=== PATIENT | female | born 1945 | race Caucasian/White ===

== ENCOUNTER 2017-04-18 13:53 | Outpatient (CLI) | payer BC | END 2017-04-18 13:54 | disposition home or self-care (01) | LOC: BICBD 13:53 | PROVIDERS: ATTEND Internal Medicine | DX: Z12.31 Encounter for screening mammogram for malignant neoplasm of breast (principal); Z13.820 Encounter for screening for osteoporosis; M85.852 Other specified disorders of bone density and structure, left thigh | CPT/HCPCS: 77063; 77067; 77080 ==

== ENCOUNTER 2018-04-19 11:13 | Outpatient (CLI) | payer MEDICARE, BC | END 2018-04-19 11:14 | disposition home or self-care (01) | LOC: BICMAMMO 11:13 | PROVIDERS: ATTEND Internal Medicine | DX: Z12.31 Encounter for screening mammogram for malignant neoplasm of breast (principal) | CPT/HCPCS: 77063; 77067 ==

== ENCOUNTER 2019-04-22 09:00 | Outpatient (CLI) | payer MEDICARE, BC ==
--- NOTE | 2019-04-23 10:12 | MMO ---
Bilateral MAMMO Bilat Screen [facility]. CLINICAL HISTORY: Patient is 73 years old and is seen for screening. The patient has no family history of breast cancer. The patient has no personal history of cancer. VIEWS: The views performed were: bilateral craniocaudal with tomosynthesis and bilateral mediolateral oblique with tomosynthesis. FILMS COMPARED: The present examination has been compared to prior imaging studies performed at [facility] on 04/15/2015, 04/17/2016, 04/18/2017 and 04/19/2018. This study has been interpreted with the assistance of computer-aided detection. MAMMOGRAM FINDINGS: There are scattered fibroglandular densities. There are no suspicious masses, suspicious calcifications, or new areas of architectural distortion. IMPRESSION: THERE IS NO MAMMOGRAPHIC EVIDENCE OF MALIGNANCY. A ROUTINE FOLLOW-UP MAMMOGRAM IN 1 YEAR IS RECOMMENDED. THE RESULTS OF THIS EXAM WERE SENT TO THE PATIENT. ACR BI-RADS Category 1 - Negative MAMMOGRAPHY NOTE: 1. A negative mammogram report should not delay a biopsy if a dominant of clinically suspicious mass is present. 2. Approximately 10% to 15% of breast cancers are not detected by mammography. 3. Adenosis and dense breasts may obscure an underlying neoplasm. Reported by: WILLIAM LEE MD Electonically Signed: [id number]
== END 2019-04-22 09:01 | disposition home or self-care (01) ==
LOC: BICMAMMO 09:00
PROVIDERS: ATTEND Internal Medicine
DX: Z12.31 Encounter for screening mammogram for malignant neoplasm of breast (principal)
CPT/HCPCS: 77063; 77067

== ENCOUNTER 2019-04-27 12:38 | Inpatient (IN) | payer MEDICARE, BC ==
[~2019-04-27 12:38] MED LIST: Dexamethasone 20 MG/5 ML VIAL ONE; Lidocaine 1% PF 5 ML VIAL ONE; Ondansetron PF 4 MG/2 ML Vial ONE; PROPOFOL 200 MG/20 ML VIAL ONE
[2019-04-27] MEDS ORDERED: Fentanyl 100 MCG/2 ML VIAL ONE ×3 (13:08→16:32)
[2019-04-27] MEDS ORDERED: Adacel (T-DAP) 0.5 ML SYRINGE ONE ×3 (13:31→13:51)
--- NOTE | 2019-04-27 13:49 | RAD ---
LEFT ANKLE TWO VIEWS: HISTORY: Fell in bathroom. FINDINGS: There is a fracture-dislocation with a transversely oriented distal fibular fracture. There is a medi al malleolar fracture and what is probably a posterior malleolar fracture. The tibia is displaced med ially. IMPRESSION: Fracture-dislocation of the tibia, which is at least a medial bimalleolar fracture, and also probably an associated posterior malleolar fracture. POS: [facility]
--- NOTE | 2019-04-27 13:51 | RAD ---
LEFT ANKLE TWO VIEWS: HISTORY: Post reduction. FINDINGS: There has been some reduction in the dislocation of the tibia. It has been partially reduced. The tib ia now is more anteriorly displaced but less medially displaced. IMPRESSION: Partial reduction of tibial dislocation. POS: [facility]
[2019-04-27 14:23] LABS: #Lymphocytes 0.9 thou/uL (1.20-3.40); #Monocytes 0.6 thou/uL (0.11-0.59); #Neutrophils 8.4 thou/uL (1.40-6.50); %Basophils 0.3 % (0.0-1.0); %Eosinophils 0.3 % (0.0-10.0); %Lymphocytes 8.7 % (21.0-51.0); %Monocytes 6.5 % (0.0-10.0); %Neutrophils 84.2 % (42.0-75.0); Hemoglobin 13.5 g/dL (12.0-16.0); Mean Corpuscular HGB CONC 34.4 g/dL (32.0-36.0); Mean Corpuscular Hemoglobin 33.1 pg (27.0-31.0); Mean Corpuscular Volume 96.1 fL (78.0-98.0); Mean Platelet Volume 7.6 fL (7.4-10.4); Platelet Count 258 thou/uL (130-400); RBC Distribution Width 11.6 % (11.5-14.5); Red Blood Cell (RBC) Count 4.09 mill/uL (4.20-5.40)
--- NOTE | 2019-04-27 14:44 | RAD ---
CHEST ONE VIEW: HISTORY: Trauma. FINDINGS: Heart size is at the upper limits of normal. Mediastinal structures appear unremarkable. Lungs are cl ear of infiltrates. Bones appear demineralized. IMPRESSION: Borderline heart size. POS: [facility]
[2019-04-27] MEDS ORDERED: Ondansetron PF 4 MG/2 ML Vial IVP PRN (14:45)
[2019-04-27] MEDS ORDERED: Dextrose 50% Abboject 50 ML SYRINGE SLOW IVP PRN (14:45)
[2019-04-27] MEDS ORDERED: Dextrose 5% in Water 1,000 ML IV PRN (14:45)
[2019-04-27] MEDS ORDERED: hydrALAZINE 20 MG/ML VIAL SLOW IVP PRN (14:45)
[2019-04-27] MEDS ORDERED: Morphine 2 MG/ML SYRINGE SLOW IVP PRN (14:45)
[2019-04-27 14:46] LABS: ALT (SGPT) 23 U/L (8-55); AST (SGOT) 27 U/L (5-34); Albumin 4.3 g/dL (3.4-4.8); Alcohol 129 mg/dL (Less than 10); Alkaline Phosphatase 71 U/L (40-110); Anion Gap 17 mmol/L (10-20); BUN (Urea Nitrogen) 18 mg/dL (9.8-20.1); Bilirubin, Total 0.2 mg/dL (0.2-1.2); CK (CPK) 262 U/L (29-168); Calc. Creatinine Clearance 0 mL/min (70-130); Calcium 9.3 mg/dL (7.8-10.44); Carbon Dioxide 24 mmol/L (23-31); Chloride 103 mmol/L (98-107); Estimated GFR-MDRD 60; Glucose 106 mg/dL (83-110); Potassium 4.5 mmol/L (3.5-5.1); Protein, Total 7.3 g/dL (6.0-8.3); Sodium 139 mmol/L (136-145)
[2019-04-27] MEDS ORDERED: traMADol HCl 50 MG TAB PO PRN (14:51)
[2019-04-27] MEDS ORDERED: Bupivacaine PF 0.5% 30 ML VIAL ONE (16:00)
--- NOTE | 2019-04-27 16:25 | RAD ---
LEFT ANKLE THREE VIEWS: History: Fracture/dislocation of the tibia. FINDINGS/IMPRESSION: Four intraoperative fluoroscopic images of the left ankle demonstrates interval reduction of the frac ture/dislocation noted on the earlier exam of 1:33 p.m. from the same date. POS: [facility]
[2019-04-27] MEDS ORDERED: Ondansetron HCl/PF 4 MG/2 ML Vial IVP PRN (16:33)
[2019-04-27] MEDS ORDERED: Promethazine HCl 25 MG/ML VIAL SLOW IVP PRN (16:33)
[2019-04-27] MEDS ORDERED: Promethazine HCl 25 MG/ML VIAL IM PRN (16:33)
[2019-04-27 18:12] VITALS: BMI 27.4
[2019-04-27] MEDS: Sodium Chloride 0.9% 1,000 ML IV SCH ×2 (18:20→19:12)
[2019-04-27] MEDS: Acetaminophen 500 MG TAB PO SCH ×2 (19:11→23:51)
--- NOTE | 2019-04-27 21:26 | CON ---
DATE OF CONSULTATION: REASON FOR CONSULTATION: Left open ankle fracture dislocation. CHIEF COMPLAINT: Left ankle pain. CONSULTING PHYSICIAN: Dr. Castro. HISTORY OF PRESENT ILLNESS: Mrs. Alberto is a 73-year-old female who was found down this morning by her brother at home. The patient had left ankle deformity. She was transferred to the emergency department via EMS. In the emergency department, the patient's x-ray demonstrated a fracture dislocation of the left ankle. She had large open wound medically. Secondary to open ankle fracture dislocation, Orthopedics was consulted. The patient was seen and evaluated in the hospital. The patient reports that she drank a large amount of alcohol yesterday evening and found herself this morning on the floor with left ankle pain and deformity. She was unable to raise to standing position. She was found by her brother whom she lives with at home with left ankle deformity and blood surrounding the patient. ER staff reduced the left ankle. Orthopedics was consulted secondary to her open fracture dislocation. We are planning to go to the OR here time in sometime at 0600 this morning. ALLERGIES: NONE. MEDICATIONS: 1. Fluoxetine. 2. Atorvastatin. 3. Esomeprazole. 4. Trazodone. 5. Lisinopril. 6. Atenolol. PAST MEDICAL HISTORY: Hypertension, hyperlipidemia, and a heart murmur. FAMILY HISTORY: Noncontributory. SOCIAL HISTORY: She admits to drinking occasionally. Does not smoke or any illicit drug use. REVIEW OF SYSTEMS: Complete 10 systems reviewed, is negative with the exception of left ankle pain. PHYSICAL EXAMINATION: VITAL SIGNS: Blood pressure 162/69, heart rate 65, respirations 18, oxygen saturation 97% on room air. GENERAL: Alert and oriented x3, in no acute distress. RESPIRATORY: Nonlabored. CARDIOVASCULAR: Regular rate. HEENT: Nontraumatic and normocephalic. PSYCHIATRIC: Normal mood and affect. ABDOMEN: Soft, nontender, nondistended. MUSCULOSKELETAL: Evaluation of the left lower extremity demonstrate persistent left ankle deformity with open wound of the medial malleolus. She has blood from the medial wound that is evident. No tenderness to palpation about the left knee or left hip. She has no ecchymosis, abrasions, or lacerations along the left hip or knee area. Evaluation of right lower extremity demonstrates no tenderness to palpation or pain on passive range of motion of the right hip, knee, ankle, or foot. No abrasions, lacerations, or ecchymosis noted. Evaluation of bilateral upper extremity demonstrates no tenderness to palpation or pain on passive range of motion of bilateral shoulders, shoulders, elbows, wrist, or hands. She is motor intact throughout. NEUROVASCULAR: Sensation intact to light touch in L4 through S1 dermatomes of right lower extremity and radial, ulnar, and median nerve distribution of bilateral upper extremities. She has variable numbness throughout the left foot at this time. Cap refill is less than 2 seconds in all digits. She has a 2+ DP pulse. IMAGING DATA: Postreduction x-rays demonstrate persistent posterior subluxation of the talus with large lateral malleolus, posterior malleolus, and medial malleolus fractures. LABORATORY DATA: White count is 10, hemoglobin is 13.5, hematocrit is 39.3, platelets 258. Chemistry is pending at this time. ASSESSMENT AND PLAN: A 73-year-old female with a left open ankle fracture dislocation. Given her open fracture and instability of her ankle, we plan for irrigation and debridement of her left open fracture with ankle spanning external fixation device, placed for ankle for stability purposes. She will need definitive fixation in approximately 7 to 14 days. We will allow the skin and soft-tissue swelling to resolve prior to definitive fixation. She verbalized understanding of our plan and wants to proceed with surgery. Job ID: [id number]
[2019-04-27] MEDS: Famotidine 20 MG TAB PO SCH (21:47)
[2019-04-27] MEDS: Diazepam 2 MG TAB PO SCH (21:47)
[2019-04-27] MEDS: traMADol HCl 50 MG TAB PO PRN (21:47)
[2019-04-27] MEDS: Senokot S 8.6-50 MG TAB PO SCH (21:47)
[2019-04-27] MEDS: CEFAZOLIN 2 GM in Premix Bag 1 BAG IVPB SCH (21:53)
--- NOTE | 2019-04-27 23:36 | HP ---
REQUESTING PHYSICIAN: Dr. Aaron Carroll. CONSULTING PHYSICIAN: Dr. Justin Hitchcock. HISTORY OF PRESENT ILLNESS: Ms. Alberto is a 73-year-old female, who presented to the ED for left ankle pain. Patient reports she was drinking last night, had a ground level fall, then went to sleep. When she woke up, found out that her ankle was and minimal bleeding. Upon arrival in the ED, patient is alert and awake. Vital signs stable. Pain from the left ankle, open wound with bleeding controlled. REVIEW OF SYSTEMS: Noncontributory, except per HPI. PAST MEDICAL HISTORY: Hypertension, hyperlipidemia. SURGICAL HISTORY: None. SOCIAL HISTORY: Patient lives at home. Denies smoking. Denies drug use. Drinking almost everyday, 2 to 6 drinks a day. ALLERGIES: NO DRUG ALLERGIES. PHYSICAL EXAMINATION: GENERAL: Currently, patient is lying down in bed comfortable with no acute respiratory distress. Patient is alert and awake. GCS 15. VITAL SIGNS: Temperature 98.3, heart rate 90, respiratory rate 14, blood pressure 120/70, and O2 saturation 98% on room air. HEENT: Atraumatic. No bruising. No bleeding. No tender to palpation. NECK: Trachea midline. No bruising. No tender to palpation. CHEST: Atraumatic. No bruising or crepitus. LUNGS: Clear bilaterally. HEART: Regular rate and rhythm. ABDOMEN: Soft and nondistended. No bruising. No deformity. Nontender to palpation. PELVIS: Stable. EXTREMITIES: Left ankle is on splint. Left toe is pink, warm, and capillary refill normal. Sensation is intact. Upper extremity and right lower extremity neurovascularly intact x3. NEUROLOGY: No focal neurology deficits. ASSESSMENT: 1. Status post ground level fall. 2. Open left ankle fracture. 3. Alcohol intoxication. 4. History of hypertension. PLAN: Patient will be admitted to telemetry for pain control. Patient will be on n.p.o., IV fluids. Initiate nonpharmacological DVT prophylaxis and gastritis prophylaxis. Patient will go to the OR with Dr. Hitchcock this afternoon. Postop, patient will need to work with physical therapy and Occupational therapy. Anticipate placement and rehabilitation facility or home with home health. Job ID: [id number]
[2019-04-28] MEDS: Acetaminophen 500 MG TAB PO SCH ×4 (05:57→23:36)
[2019-04-28] MEDS: traMADol HCl 50 MG TAB PO PRN ×2 (05:57→16:02)
[2019-04-28] MEDS: CEFAZOLIN 2 GM in Premix Bag 1 BAG IVPB SCH (05:58)
--- NOTE | 2019-04-28 08:13 | OP ---
DATE OF PROCEDURE: 04/27/2019 PREOPERATIVE DIAGNOSIS: Left ankle fracture dislocation. POSTOPERATIVE DIAGNOSIS: Left ankle fracture dislocation. PROCEDURES PERFORMED: Irrigation and debridement of left open fracture down to bone and application of ankle spanning external fixation device. ANESTHESIA: General. ESTIMATED BLOOD LOSS: 50 mL. DRAINS: None. TOURNIQUET: None. COMPLICATIONS: None. IMPLANTS: Synthes Delta Frame external fixation device. FINDINGS: 3 cm transverse laceration just proximal to the medial malleolus with comminuted medial malleolus fracture, posterior malleolus and lateral malleolus fracture. Unstable left ankle. No gross debris within the wound. INDICATIONS FOR PROCEDURE: Ms. Alberto is a 73-year-old female who presented to the emergency department via EMS after a ground level fall. The patient apparently was intoxicated yesterday evening and had a fall this morning. She was unable to rise to a standing position, she was found by her brother, who called EMS, for which she was transferred. In the emergency department, she was found to have an open fracture dislocation of the left ankle including medial malleolus, lateral malleolus, and posterior malleolus. Given her open ankle fracture, it was recommended she undergo operative fixation. Risks, benefits, and alternatives of the procedure were explained to the patient preoperatively. Risks including but not limited to pain, bleeding, infection, risk of damage to underlying vessels or nerves, damage to muscle, tendons, bones, ligaments, risk of blood clots including MO, PE, DVT, stroke, risk of , risk of painful hardware, hardware failure, the need for additional procedures in the future. She verbalized understanding and wanted to proceed. The left ankle was marked as the correct operative site. DESCRIPTION OF PROCEDURE: The patient was brought back to the operative suite, transferred over to the surgical table in supine position. She underwent general anesthetic. Once the general anesthetic had taken effect, the left lower extremity was prepped and draped in a clean sterile manner. A formal time-out was conducted indicating correct procedure, correct site, and correct patient. All were in agreement. She was given 2 g of Ancef prior to start of the procedure. At that point, we evaluated the left ankle, she had obvious instability of the left ankle. 3 to 4 cm longitudinal laceration was just proximal to the medial malleolus. There was no gross debris in the wound; however, she had significant thinning in the skin in that region and comminuted medial malleolus within the wound. When we copiously irrigated the site with normal saline, curette was used to curette both bone ends. At that point, we placed two 5-mm partially-threaded pins into the tibia shaft proximal to the ankle under C-arm guidance. We made another stab incision along the medial calcaneous, spread down to bone with a hemostat and placed our 5 mm calc pin through the calcaneous. At that point, we fastened our bar to bar and clamp to bar devices. We placed our Delta Frame bars on the medial and lateral aspect of the ankle. We reduced the ankle and tightened down all of our screws and nuts. At that point, C-arm was again brought in. We verified that we had good position in the sagittal plane and the coronal plane. We pushed the ankle posteriorly to see if she dislocated out the back given the large posterior malleolus fracture, however, she did not. We inverted and everted the ankle with the ex-fix in place, which had great stability, performed plantarflexion and dorsiflexion of the foot. She had great stability of this as well. We deemed the ankle quite stable with our external fixation device intact. We then copiously irrigated around all pin sites and re-irrigation of the wound itself. We closed our deep layer with 2-0 Monocryl and closed the skin with 3-0 nylon in a horizontal mattress technique. Again, the skin was very thin over this medial malleolus area. She had lots of bruising and soft tissue injury in this region. Xeroform was placed around the pin sites and laceration sites. We placed 4 x 4s around all pins, followed by Sof-Rol and Rene wrap. At that point, she was awakened from her general anesthetic, transferred to the hospital bed and transferred to the PACU in stable condition. No complications during the procedure. ASSESSMENT AND PLAN: A 73-year-old female, who is status post irrigation and debridement of the left trimalleolar ankle fracture dislocation, which was open. She will remain on IV Ancef for approximately 24 hours. She will be nonweightbearing to the left lower extremity. We will see her back in clinic in approximately 1 week's time to evaluate the wound. Job ID: [id number]
[2019-04-28] MEDS: Diazepam 2 MG TAB PO SCH ×2 (08:36→19:56)
[2019-04-28] MEDS: Senokot S 8.6-50 MG TAB PO SCH ×2 (08:36→19:56)
[2019-04-28] MEDS: Famotidine 20 MG TAB PO SCH ×2 (08:37→19:56)
[2019-04-28] MEDS: Folic Acid 1 MG TAB PO SCH (08:37)
[2019-04-28] MEDS: Thiamine 100 MG TAB PO SCH (08:37)
[2019-04-28] MEDS: Polyethylene Glycol 3350 17 GM Packet PO SCH (08:39)
--- NOTE | 2019-04-28 09:14 | CT ---
CT LEFT ANKLE PERFORMED WITHOUT CONTRAST ENHANCEMENT: Date: 04/27/2019 HISTORY: Post reduction. FINDINGS: External fixation device has been placed, stabilizing the trimalleolar fracture. The posterior malleo lar component is in good alignment. The medial malleolar component is a slightly comminuted fracture. A portion of the medial malleolus is slightly more anteriorly displaced. Fracture does appear to inv olve the medial margin of the tibial plafond. The fibular fracture is fixed in good alignment. Bones are diffusely demineralized. IMPRESSION: External fixation device stabilizing an ankle fracture. There is good position of the fibular and pos terior malleolar fractures. The medial malleolar fracture is a more comminuted fracture. One of these fragments is slightly anteriorly displaced. The tip of the medial malleolus is in fairly good positi on, but there is a somewhat prominent gap between this component of the fracture and the distal tibia related to the fragment and slightly displaced nature of this component of the medial malleolar frac kady. POS: [facility]
--- NOTE | 2019-04-28 15:04 | PRG ---
DATE OF SERVICE: 04/28/2019 SUBJECTIVE: The patient was seen and evaluated in her hospital bed. She is doing well. Pain is well controlled. She denies any pain in left ankle at this time. She has gotten up with physical therapy this morning. She has been compliant with nonweightbearing in left lower extremity. OBJECTIVE: VITAL SIGNS: Stable. The patient is afebrile. GENERAL: Alert and oriented x3, no acute distress. RESPIRATORY: Nonlabored. CARDIOVASCULAR: Regular rate. MUSCULOSKELETAL: Evaluation of left lower extremity demonstrates positive FHL and EHL. She has minor drainage on the dressing around the ex-fix pin sites as expected. No excessive swelling of the foot at this time. No tenderness to palpation about the left knee or hip today. Secondary survey demonstrates no tenderness to palpation and no pain on passive range of motion of bilateral shoulders, elbows, wrists or hands. Evaluation of right lower extremity demonstrates no tenderness to palpation and no pain on passive range of motion of right hip, knee, ankle or foot. NEUROVASCULAR: Sensation is intact to light touch L4 through S1 dermatomes to bilateral lower extremities. Cap refill is less than 2 seconds in all digits. ASSESSMENT AND PLAN: This is a 73-year-old female status post incision and drainage and ex-fix of a left trimalleolar ankle fracture dislocation. She remained on IV antibiotics through today. She is nonweightbearing on left lower extremity. Given the patient's social status, she may need inpatient rehab placement. We will contact Physical Therapy to see their assessment on the patient as well. The patient will be seen back in my clinic in approximately 1 week's time for a skin check. We will arrange followup for that. Please call with questions [phone]. Job ID: [id number]
--- NOTE | 2019-04-28 15:35 | PRG ---
DATE OF SERVICE: 04/28/2019 SUBJECTIVE: Ms. Alberto was admitted with open ankle fracture, underwent external fixation by Dr. Hitchcock. The plans are to have her follow up in a week to schedule skin check and determine further treatment. The patient notes no other symptoms of pain or dyspnea. She is getting up with physical therapy this morning. OBJECTIVE: VITAL SIGNS: On physical exam, she is afebrile and her vital signs are stable. GENERAL: She has had multiple voids. She is in no acute distress. She is alert and oriented x3. CHEST: Clear bilateral. HEART: Regular rate. ABDOMEN: Soft and nontender. EXTREMITIES: Left lower extremity dressings are intact. ASSESSMENT: Open ankle fracture status post washout and external fixation. PLAN: For her to get up with physical therapy, determine how well she is able to transfer, potential discharge within the next 24 to 48 hours. She may need rehab placement depending on the home situation and for Dr. Hitchcock to reassess in a week. Job ID: [id number]
[2019-04-29] MEDS: Acetaminophen 500 MG TAB PO SCH ×3 (05:50→17:33)
[2019-04-29] MEDS: Atenolol 50 MG TAB PO SCH (08:21)
[2019-04-29] MEDS: Polyethylene Glycol 3350 17 GM Packet PO SCH (08:21)
[2019-04-29] MEDS: traZODone HCl 50 MG TAB PO SCH (08:22)
[2019-04-29] MEDS: Atorvastatin Calcium 40 MG TAB PO SCH (08:22)
[2019-04-29] MEDS: Lisinopril 20 MG TAB PO SCH (08:22)
[2019-04-29] MEDS: Senokot S 8.6-50 MG TAB PO SCH ×2 (08:23→21:38)
[2019-04-29] MEDS: Famotidine 20 MG TAB PO SCH (08:23)
[2019-04-29] MEDS: Thiamine 100 MG TAB PO SCH (08:23)
[2019-04-29] MEDS: FLUoxetine HCl 20 MG CAP PO SCH (08:23)
[2019-04-29] MEDS: Folic Acid 1 MG TAB PO SCH (08:23)
[2019-04-29] MEDS: Enoxaparin Sodium 40 MG/0.4 ML SYRINGE SC SCH (08:24)
--- NOTE | 2019-04-29 08:46 | PRG ---
DATE OF SERVICE: 04/29/2019 SUBJECTIVE: The patient denies pain this morning. Overall, she is doing well. Denies nausea or vomiting. No acute events overnight. OBJECTIVE: VITAL SIGNS: Blood pressure 169/76, temperature 98.3, pulse 70, respirations 16, 97% on room air. GENERAL: Alert and oriented x3 in no acute distress. RESPIRATORY: Nonlabored. CARDIOVASCULAR: Regular rate. MUSCULOSKELETAL: Left lower extremity demonstrates minor drainage from the pin sites as expected. No excessive swelling of the calf or foot. Positive FHL/EHL activation without pain. NEUROVASCULAR: Sensation is intact to light touch L4 through S1 dermatomes. Cap refill is less than 2 seconds in all digits. She has 2+ DP pulse. LABORATORY DATA: No new labs today. ASSESSMENT AND PLAN: A 73-year-old female status post incision and drainage and external fixation of a left open trimalleolar ankle fracture dislocation. The patient has non-weightbearing left lower extremity. Antibiotics complete. The patient is pending placement to rehab at this time. We will follow her up in clinic in approximately 1 week's time. We will go ahead and arrange that. I have left prescription in the chart for postop pain control over the next week. We will see her in clinic in approximately 1 week. Job ID: [id number]
[2019-04-29] MEDS ORDERED: Non-Formulary Item 1 EACH (Trazodone Hcl [Trazodone Hcl] 1 TAB) PO SCH (09:00)
[2019-04-29] MEDS ORDERED: Lisinopril 20 MG TAB PO SCH (09:00)
[2019-04-29] MEDS ORDERED: Atenolol 50 MG TAB PO SCH (09:00)
[2019-04-29] MEDS ORDERED: ESOMEPRAZOLE MAGNESIUM PO SCH (09:00)
[2019-04-29] MEDS ORDERED: Diazepam 2 MG TAB PO SCH (09:00)
[2019-04-29] MEDS: Oxazepam 10 MG CAP PO SCH ×2 (09:49→17:33)
[2019-04-29] MEDS: traMADol HCl 50 MG TAB PO PRN ×2 (13:53→21:38)
--- NOTE | 2019-04-29 18:41 | PRG ---
DATE OF SERVICE: 04/29/2019 SUBJECTIVE: The patient was seen this morning during rounds. She was sitting up in bed with no signs of acute distress. She reported her pain is well controlled. She is tolerating a regular diet. She has no signs or symptoms of alcohol withdrawal at this time. She is working with Physical and Occupational Therapy and is pending placement in acute rehab facility. OBJECTIVE: VITAL SIGNS: Temperature 99.2, pulse 81, respirations 14, oxygen saturation 99% on room air, and blood pressure 178/78. GENERAL: Well-appearing elderly female, sitting up in bed with no signs of acute distress. PULMONARY: Equal chest rise and fall. Clear breath sounds bilaterally. No signs of acute respiratory distress. CARDIAC: Regular rate and rhythm. No murmurs, gallops, or rubs. GI: Abdomen is soft, nontender, and nondistended. EXTREMITIES: 2+ pulses in all extremities. Gross motor and sensation are intact. Ex-fix to left lower extremity is in place with dressing that is clean, dry, and intact. The patient with good motor sensation to the left toes. NEUROLOGIC: GCS is 15. Pupils equal, round, and reactive to light bilaterally. LABORATORY FINDINGS: There are no new laboratory findings to discuss. DIAGNOSTIC FINDINGS: There are no new diagnostic findings to discuss. ASSESSMENT: 1. Status post ground level fall while intoxicated. 2. Open left ankle fracture dislocation. 3. History of hypertension, hyperlipidemia, and alcohol abuse. 4. Hypertension, uncontrolled. 5. Chronic alcohol abuse. PLAN: Continue current diet and pain regimen. Continue physical and occupational therapy. We will start all the patient's home medications and continue to monitor her uncontrolled hypertension. We will make further adjustments to her medications as needed. We will discontinue Valium and start the patient on Serax in its place to prevent alcohol withdrawal. The patient is pending placement in acute rehab facility. Rehab facility not willing to take the patient today as they were concerned that she will be consider readmission once her hardware is internalized. Dr. Hitchcock to speak with rehab physicians. Trauma team finds it is more appropriate to send the patient there now for rehab and can likely have the internalization of the hardware done on an outpatient basis if she gets rehab early. We are concerned that the patient will decompensate here in the hospital and she will not be receiving aggressive physical therapy and will be spending a lot of time in the bed. We will follow up with rehab facility and Dr. Hitchcock tomorrow. Job ID: [id number]
[2019-04-30] MEDS: Acetaminophen 500 MG TAB PO SCH ×3 (00:20→11:11)
[2019-04-30] MEDS: Oxazepam 10 MG CAP PO SCH ×2 (00:59→10:02)
[2019-04-30] MEDS: traMADol HCl 50 MG TAB PO PRN ×2 (04:31→12:46)
[2019-04-30 07:31] VITALS: TEMP 98.1
[2019-04-30] MEDS: Polyethylene Glycol 3350 17 GM Packet PO SCH (08:20)
[2019-04-30] MEDS: Atenolol 50 MG TAB PO SCH (08:20)
[2019-04-30] MEDS: Senokot S 8.6-50 MG TAB PO SCH (08:21)
[2019-04-30] MEDS: traZODone HCl 50 MG TAB PO SCH (08:21)
[2019-04-30] MEDS: FLUoxetine HCl 20 MG CAP PO SCH (08:21)
[2019-04-30] MEDS: Lisinopril 20 MG TAB PO SCH (08:22)
[2019-04-30] MEDS: Atorvastatin Calcium 40 MG TAB PO SCH (08:22)
[2019-04-30] MEDS: Enoxaparin Sodium 40 MG/0.4 ML SYRINGE SC SCH (08:22)
[2019-04-30] MEDS: Thiamine 100 MG TAB PO SCH (08:22)
[2019-04-30] MEDS: Folic Acid 1 MG TAB PO SCH (08:22)
[2019-04-30] MEDS ORDERED: Multivitamin W/ Minerals 1 TAB PO SCH (09:00)
[2019-04-30 12:00] VITALS: BP 150/59
--- NOTE | 2019-04-30 12:29 | DIS ---
DATE OF ADMISSION: 04/27/2019 DATE OF DISCHARGE: 04/30/2019 ADMISSION DIAGNOSES: 1. Status post ground-level fall. 2. Open left ankle fracture. 3. Acute alcohol intoxication. 4. History of hypertension. CONSULTATIONS: Orthopedics, Dr. Hitchcock. PROCEDURES: Irrigation, debridement, and external fixator placement on left ankle. SUMMARY: The patient is a 73-year-old woman, who presented to the emergency department after reportedly having a ground-level fall, likely due to an acute alcohol intoxication. The night prior to arriving at the emergency department, she had reportedly fell, went to sleep, came to the emergency department the following morning, where she underwent evaluation and examination and was noted to have the above injury. She will be taken to the operating room to undergo her above procedures, which she tolerated well. At the time of discharge, she was working with Physical and Occupational Therapy. She was progressing. She was tolerating a diet. Her pain was controlled and she will be able to be discharged to inpatient rehab. Currently, the plan is for her to be a staged procedure and return in 1 week for evaluation by Dr. Hitchcock and assess definitive fixation at that time. The patient has an appointment for 05/06/[address] Hitchcock. Job ID: [id number]
--- NOTE | 2019-05-03 14:51 | EKG ---
Test Reason : Blood Pressure : / mmHG Vent. Rate : 071 BPM Atrial Rate : 071 BPM P-R Int : 164 ms QRS Dur : 082 ms QT Int : 416 ms P-R-T Axes : -10 -10 037 degrees QTc Int : 452 ms Sinus rhythm with sinus arrhythmia with occasional Premature ventricular complexes and Fusion complex es Minimal voltage criteria for LVH, may be normal variant Borderline ECG Confirmed by PARAS PEÑA, HARRISON ([id number]), subeditor KIMBERLEE ERICKSON ([id number]) on 05/03/2019 2:51:25 PM Referred By: Confirmed By:HARRISON CRAIN MD
== END 2019-04-30 14:41 | DRG 494 ==
LOC: ERS 12:38 → SDC/OP 14:12 → SURG B 17:19
PROVIDERS: ADMIT Surgery; ATTEND Surgery
PROC: 0QBH0ZZ Excision of Left Tibia, Open Approach (ICD-10-PCS; principal; 2019-04-27)
PROC: 0QSK05Z Reposition Left Fibula with External Fixation Device, Open Approach (ICD-10-PCS; 2019-04-27)
PROC: 0QSH05Z Reposition Left Tibia with External Fixation Device, Open Approach (ICD-10-PCS; 2019-04-27)
PROC: 0QBK0ZZ Excision of Left Fibula, Open Approach (ICD-10-PCS; 2019-04-27)
DX: S82.852B Displaced trimalleolar fracture of left lower leg, initial encounter for open fracture type I or II (principal); I10 Essential (primary) hypertension; E78.5 Hyperlipidemia, unspecified; F10.129 Alcohol abuse with intoxication, unspecified; W18.30XA Fall on same level, unspecified, initial encounter; Y93.89 Activity, other specified; Y92.009 Unspecified place in unspecified non-institutional (private) residence as the place of occurrence of the external cause
CPT/HCPCS: 27810; 36415; 71045; 76000; 80053; 80307; 82550; 84484; 85025; 86850; 86900; 86901; 90471; 90715; 93005; 96374; 96375; C1713; J0690; J1100; J1650; J2001; J2405; J2704; J3010; S0020

== ENCOUNTER 2020-02-17 10:30 | Inpatient (IN) | payer MEDICARE, BC ==
[~2020-02-17 10:30] MED LIST changes: -Dexamethasone 20 MG/5 ML VIAL ONE; +Iopamidol-370 76% 500 ML 1 ML ONE; -Lidocaine 1% PF 5 ML VIAL ONE; -Ondansetron PF 4 MG/2 ML Vial ONE; -PROPOFOL 200 MG/20 ML VIAL ONE
--- NOTE | 2020-02-17 10:54 | CT ---
CT HEAD WITHOUT CONTRAST: Date: 02/17/2020 HISTORY: Mental status change. Stroke alert. Dysphasia. No comparison. FINDINGS: Ventricles have normal size and position with mild cortical volume loss. Large area of CSF density in the inferior left basal ganglia probably represents a prominent vascular space. No evidence of acute mass, hemorrhage, or infarct. Paranasal sinuses and mastoids appear clear. IMPRESSION: No acute finding. Findings relayed to Dr. Monahan at 1048 hours. CODE CR. POS: [facility]
[2020-02-17] MEDS ORDERED: Bisacodyl 10 MG SUPP PR PRN (11:03)
[2020-02-17] MEDS ORDERED: Guaifenesin DM 100-10/5 ML UDCUP PO PRN (11:03)
[2020-02-17] MEDS ORDERED: Acetaminophen 325 MG TAB PO PRN (11:03)
[2020-02-17] MEDS ORDERED: Ondansetron PF 4 MG/2 ML Vial IVP PRN (11:03)
[2020-02-17] MEDS ORDERED: Calcium Carbonate 500 MG ChewTAB PO PRN (11:03)
[2020-02-17] MEDS ORDERED: Aspirin Chewable 81 MG TAB ONE (11:23)
[2020-02-17 11:27] LABS: #Lymphocytes 1.3 thou/uL (1.20-3.40); #Monocytes 0.6 thou/uL (0.11-0.59); #Neutrophils 4.3 thou/uL (1.40-6.50); %Basophils 0.7 % (0.0-1.0); %Eosinophils 0.4 % (0.0-10.0); %Lymphocytes 20.8 % (21.0-51.0); %Monocytes 9.9 % (0.0-10.0); %Neutrophils 68.1 % (42.0-75.0); Hemoglobin 12.1 g/dL (12.0-16.0); Mean Corpuscular Hemoglobin 34.1 pg (27.0-31.0); Mean Platelet Volume 7.4 fL (7.4-10.4); Platelet Count 229 thou/uL (130-400); RBC Distribution Width 11.1 % (11.5-14.5); Red Blood Cell (RBC) Count 3.55 mill/uL (4.20-5.40); White Blood Cell (WBC) Count 6.3 thou/uL (4.8-10.8)
[2020-02-17 11:29] LABS: PTT 27.6 sec (22.9-36.1); Prothrombin Time 13.1 sec (12.0-14.7)
[2020-02-17 11:34] LABS: Bilirubin Negative (Negative); Blood, Urine Negative (Negative); Clarity Clear (Clear); Glucose, Urine (Dipstick) Normal (Negative); Ketone, Urine Negative (Negative); Leukocyte Negative Leu/uL (Negative); Nitrite Negative (Negative); Protein, Urine (Dipstick) Negative (Neg-Trace); Specific Gravity, Urine 1.026 (1.002-1.036); Urobilinogen Normal mg/dL (Less than 2); pH, Urine 7.5 (5.0-9.0)
[2020-02-17 11:45] LABS: ALT (SGPT) 18 U/L (8-55); AST (SGOT) 23 U/L (5-34); Albumin 3.8 g/dL (3.4-4.8); Alkaline Phosphatase 54 U/L (40-110); Anion Gap 12 mmol/L (10-20); BUN (Urea Nitrogen) 10 mg/dL (9.8-20.1); Bilirubin, Total 0.4 mg/dL (0.2-1.2); Calc. Creatinine Clearance 0 mL/min (70-130); Calcium 9.6 mg/dL (7.8-10.44); Carbon Dioxide 26 mmol/L (23-31); Chloride 98 mmol/L (98-107); Globulin 2.4 g/dL (2.4-3.5); Glucose 100 mg/dL (83-110); Potassium 4.1 mmol/L (3.5-5.1); Protein, Total 6.2 g/dL (6.0-8.3); Sodium 132 mmol/L (136-145)
--- NOTE | 2020-02-17 11:46 | CT ---
CTA HEAD WITH CONTRAST CTA NECK WITH CONTRAST: Axial tomograms were obtained through the head and neck following angio protocol with multiplanar rec onstruction and 3D post processing with angio protocol. INDICATION: Stroke protocol. Dysphagia. FINDINGS: CTA HEAD: Intracranial internal carotid arteries are patent and symmetric. Atherosclerotic calcifications are seen in the cavernous ICAs bilaterally without evidence of significant stenosis. Mild luminal narrow ing at the carotid terminus bilaterally, slightly more pronounced on the left. Both M1 segments are patent without evidence of significant M1 stenosis. Anterior cerebral arteries appear patent and symmetric. Basilar artery is small but patent. communication with the right CHIEF NURSE ANESTHETIST. rod bending machine operator are patent bilater ally. IMPRESSION: No evidence of significant proximal stenosis or occlusion involving either M1 segment. Atherosclerot ic changes in both cavernous internal carotid arteries without significant stenosis. CTA NECK: No significant stenosis at the origin of the arch vessels. Common carotid arteries are patent and sy mmetric. Atherosclerotic calcification at the left bulb extending into the left ICA produces high-grade stenos is in the origin of the left internal carotid artery. The left ICA above the bulb is patent. Atherosclerotic calcification is also seen in the right bulb and proximal right ICA. No significant right ICA stenosis apparent. The vertebral arteries are patent and symmetric. Visualized lung underwood are clear. Soft tissues unr emarkable. There are moderate degenerative changes in the cervical spine. IMPRESSION: Evidence of high-grade stenosis at the origin of the left internal carotid artery. Recommend cathete r angiogram and cardiomegaly consultation. POS: ALEX
[2020-02-17] MEDS: Sodium Chloride 0.9% 1,000 ML IV SCH (12:18)
--- NOTE | 2020-02-17 12:36 | HP ---
REASON FOR ADMISSION: Dysarthria, difficulty using her hand with right-sided weakness. HISTORY OF PRESENTING ILLNESS: The patient gives 2 weeks history of having off and on slurred speech. She also had trouble tying her shoes, holding onto forks. She had trouble holding a pen as well. The patient had postponed due to the holiday season and was wanting to see her primary care physician after hols. She called her PCP, Dr. Weiss, this morning and was asked to go to the emergency room. She has been using a cane after her left ankle surgical repair done in April. No complaints of chest pain, palpitation, PND, or orthopnea. No complaints of trouble swallowing as such. No fever or COVID-like symptoms. PAST MEDICAL AND SURGICAL HISTORY: Likely aortic stenosis, hypertension, dyslipidemia, insomnia, left hand surgery, and left ankle surgery. CURRENT MEDICATIONS: The patient is on: 1. Fluoxetine 20 mg p.o. q.a.m. 2. Atorvastatin 40 mg p.o. at bedtime. 3. Nexium 40 mg p.o. daily. 4. Trazodone 100 mg p.o. at bedtime. 5. Lisinopril 20 mg p.o. daily. 6. Atenolol 50 mg p.o. daily. ALLERGIES: NO KNOWN DRUG ALLERGIES. PERSONAL HISTORY: Drinks at least 2 glasses of wine daily. She had quit drinking after her left ankle surgery, but has restarted it recently per her brother who is here at bedside. Does not abuse drugs or smoke. She lives with her brother and other siblings. Ambulates with a cane. FAMILY HISTORY: Mother in her 80s of natural causes. Father in his 50s, was a heavy alcoholic. CODE STATUS: Full. REVIEW OF SYSTEMS: CONSTITUTIONAL: Negative for weight loss or gain, ability to conduct usual activities. SKIN: Negative for rash, itching. EYES: Negative for double vision, pain. ENT/MOUTH: Negative for nose bleeding, neck stiffness, pain, tenderness. CARDIOVASCULAR: Negative for palpitations, dyspnea on exertion, orthopnea. RESPIRATORY: Negative for shortness of breath, wheezing, cough, hemoptysis, fever or night sweats. GASTROINTESTINAL: Negative for poor appetite, abdominal pain, heartburn, nausea, vomiting, constipation, or diarrhea. GENITOURINARY: Negative for urgency, frequency, dysuria, nocturia. MUSCULOSKELETAL: Negative for pain, swelling. NEUROLOGIC/PSYCHIATRIC: Negative for anxiety, depression. ALLERGY/IMMUNOLOGIC: Negative for skin rash, bleeding tendency. PHYSICAL EXAMINATION: GENERAL: The patient is a 74-year-old female, who is currently not in any acute distress. VITAL SIGNS: Blood pressure 150/80, pulse 80 per minute, respiratory rate 20 per minute, saturating 97% on room air, and temperature 97.8 degrees Fahrenheit. NECK: Supple. No elevated JVD. HEENT: Eyes; extraocular muscles intact. Pupils reacting to light. Oral cavity; mucous membranes are moist. No exudates or congestion. CARDIOVASCULAR SYSTEM: S1 and S2 heard. Murmur plus. RESPIRATORY: Air entry 1+ bilateral. Scattered rhonchi. No rales or wheezes. ABDOMEN: Soft. Bowel sounds heard. No tenderness, rigidity, or guarding. EXTREMITIES: No peripheral edema or calf tenderness. VASCULAR SYSTEM: Peripheral pulses 1+ bilateral. No ischemic ulcers or gangrene. CENTRAL NERVOUS SYSTEM: The patient has mild weakness in the right upper and lower extremity around 4/5 when compared to left. The patient has had left hand surgery with loss of most of her hand and atrophic changes in the forearm, likely chronic. She is a right-handed person. She is currently moving all extremities. The patient has some lip-smacking and facial twitching at bedside, which she says is all new. Gait was not tested. PSYCHIATRIC SYSTEM: No obvious hallucinations or delusions. LABORATORY DATA: CT angio head and neck showed high-grade stenosis at the origin of the left internal carotid artery. No evidence of proximal stenosis or occlusion involving either M1 segment. Arthrosclerotic changes of both cavernous internal carotid arteries without significant stenosis. CT brain showed no acute findings. White count of 6, H and H 12 and 36, platelet count 229, MCV is 103 with 68% neutrophils. PT, INR, PTT within normal limits. BUN 10, creatinine 0.7. LFTs are within normal limits. Albumin is 3.8. UA is negative for any infection. EKG done shows sinus rhythm. CLINICAL IMPRESSION AND PLAN: The patient will be admitted to stroke unit on an observation status for now. The patient has nonspecific symptoms of slurred speech from last 2 weeks, unable to use her right hand with difficult fine motor skills in right upper extremity. She is right-handed person as well. She also has high-grade left carotid stenosis. We will obtain consultation with Dr. Beltran for Neurology, Dr. Shukla for Cardiothoracic Surgery. The patient will be on full-dose aspirin, small dose of atenolol at 25 mg daily, and we will continue her home dose of Prozac and trazodone as before. We will gently hydrate her with normal saline at 60 mL/h. We will also continue lisinopril at a lower dose. Echo with 2D Doppler for likely severe aortic stenosis. MRI without contrast as well. If any procedures are planned, the patient will be switched over to inpatient status in the morning. She is otherwise hemodynamically stable. I have given complete updates to the patient and her brother at bedside. Job ID: [id number]
--- NOTE | 2020-02-17 12:38 | MRI ---
BRAIN MRI WITHOUT CONTRAST: HISTORY: Slurred speech. Confusion. Symptoms have resolved. Evaluate for stroke versus TIA. COMPARISON: None. FINDINGS: Calvarial marrow signal intensity: Appropriate T1 signal. Gradient echo sequence: No hemorrhage. Brain parenchyma: No mass, mass effect or midline shift. Brain volume, age-appropriate. Cortical estrada-white matter differentiation: Loss of cortical estrada-white matter differentiation involv ing the left frontal lobe, left occipital lobe. Restricted diffusion: Central arterial flow voids are maintained. There is restricted diffusion invol ving the left centrum semiovale. Additional areas of restricted diffusion involving the left frontal cortex and left occipital cortex and the left periventricular white matter adjacent to the po sterior body of the left lateral ventricle. White matter signal intensities:There is T2 and FLAIR hyperintensity involving the aforementioned are as of restrictive diffusion. Additional small areas of T2 and FLAIR hyperintensity are noted which may represent chronic small vessel ischemic change. Sinuses: Adequate aeration of the paranasal sinuses and mastoid air cells. Incidentals: There are T2 and FLAIR hyperintensities involving the inferior aspect of the deep estrada m atter structures likely representing prominent Virchow-Royce spaces. IMPRESSION: Left cerebral infarct. There is evidence of cortical infarction suggesting embolic phenomenon. Additi onal areas of white matter hyperintensities in the deep estrada matter structures suggesting possible component of watershed infarct. Transcribed Date/Time: 02/17/2020 12:49 PM
[2020-02-17 16:28] VITALS: BMI 19.4
--- NOTE | 2020-02-17 20:56 | CON ---
DATE OF CONSULTATION: HISTORY OF PRESENT ILLNESS: This is a pleasant 74-year-old female who has a past medical history of hypertension and dyslipidemia for which she sees the piper helper at the [facility]. She developed some dysarthria, some right hand clumsiness about 2 weeks ago that has persisted and her physician found out about it today and suggested she go to the emergency room. She has had a rather thorough evaluation here including an MRI showing a left cerebral infarct; brain scan negative; CT angio of the neck showing moderate right carotid disease, high-grade left carotid lesion with some thrombus just distal to the plaque. PAST MEDICAL HISTORY: Includes aortic valve stenosis, followed by Dr. Szymanski; hypertension; dyslipidemia. She has had left ankle surgery in April of this year, complicated by some wound problems but this has now completely resolved, and she states that she is ambulatory. She has also had some left hand surgery resulting in the loss of 4 of her 5 fingers. SOCIAL HISTORY: She is a nonsmoker. [facility] with her brother. She has another brother who lives in [place]. MEDICATIONS: At home include: 1. Fluoxetine 20. 2. Atorvastatin 40. 3. Lisinopril 20. 4. Atenolol 50. 5. Nexium 40. 6. She was not on aspirin, but has received a dose here today. ALLERGIES: SHE HAS NO KNOWN ALLERGIES. PHYSICAL EXAMINATION: GENERAL: On examination, she is alert, cooperative lady, in no distress, small statured. VITAL SIGNS: Blood pressure 150/80, heart rate 80. NECK: I do not appreciate any carotid bruits; however, cardiac exam reveals a harsh systolic murmur across the precordium. ABDOMEN: Soft and nontender, and she has palpable femoral pulses. EXTREMITIES: I did not appreciate any pedal pulses. She has one remaining finger on her left hand with a fairly preserved gem cutter on the right hand. She has good strength in her feet. NEUROLOGIC: Speech is somewhat impaired with some word searching and occasional slurring. She is able to communicate, however, without much difficulty. PLAN: At this time is for left carotid endarterectomy. An informed consent has been obtained from the patient, and I have also discussed to a less significant degree with her brother at home. Job ID: [id number]
[2020-02-17] MEDS: Famotidine 20 MG TAB PO SCH (21:29)
[2020-02-17] MEDS: traZODone HCl 50 MG TAB PO SCH (21:29)
[2020-02-17] MEDS: Atorvastatin Calcium 40 MG TAB PO SCH (21:29)
[2020-02-18 03:06] LABS: SARS-CoV-2 MS2 Positive; SARS-CoV-2 N Gene Negative; SARS-CoV-2 S Gene Negative; SARS-CoV-2 by NAA Not Detected (NotDetected); SARS-CoV-2 orf1ab Negative
[2020-02-18 05:44] LABS: Eosinophils 2 % (0-10); Lymphocytes 40 % (21-51); MDiff Complete? YES; Mean Corpuscular HGB CONC 33.1 g/dL (32.0-36.0); Mean Platelet Volume 7.3 fL (7.4-10.4); Monocytes 10 % (0-10); Neutrophil 48 % (42-75); Platelet Count 206 thou/uL (130-400); Platelet Morphology Comment Appears Adequate; RBC Distribution Width 11.1 % (11.5-14.5); Red Blood Cell (RBC) Count 3.23 mill/uL (4.20-5.40); White Blood Cell (WBC) Count 5.3 thou/uL (4.8-10.8)
[2020-02-18 05:52] LABS: Anion Gap 10 mmol/L (10-20); BUN (Urea Nitrogen) 6 mg/dL (9.8-20.1); Calc. Creatinine Clearance 52 mL/min (70-130); Calcium 9.2 mg/dL (7.8-10.44); Carbon Dioxide 28 mmol/L (23-31); Cardiac Risk 2.9 (Less than 4.5); Chloride 105 mmol/L (98-107); Cholesterol 126 mg/dl (< 200 Desired); Glucose 92 mg/dL (83-110); HDL Cholesterol 44 mg/dL (>60 Neg Risk); LDL Cholesterol, Calculated 61 mg/dL; Potassium 4.4 mmol/L (3.5-5.1); Sodium 139 mmol/L (136-145); Triglycerides 103 mg/dL (Less than 150)
--- NOTE | 2020-02-18 06:08 | CON ---
NEUROLOGY CONSULTATION DATE OF CONSULTATION: 02/17/2020 REASON FOR CONSULTATION: Stroke, dysarthria, and right hand weakness. HISTORY OF PRESENT ILLNESS: Ms. Alberto is a 74-year-old female with medical history significant for aortic stenosis, hypertension, dyslipidemia, and insomnia, presented with a 2-week on and off history of slurred speech and trouble tying her shoes and holding forks, and she has difficulty holding things from her right hand. The patient had postponed the holiday because of these symptoms and decided to see her primary care physician after holiday. She called her PCP, who asked her to go to the emergency room for further evaluation for stroke. She has been using a cane after her left ankle surgical repair in April of this year. The patient denies focal weakness, focal paresthesias, nausea, vomiting, headache, chest pain, abdominal pain, vertigo, dizziness, double vision, loss of vision, loss of consciousness, fever, recent illness or exposure to COVID, or COVID-like symptoms. REVIEW OF SYSTEMS: All systems reviewed and were negative except the pertinent positives and negatives mentioned in the HPI. PAST MEDICAL HISTORY: Aortic stenosis, hypertension, dyslipidemia, and insomnia. PAST SURGICAL HISTORY: Left hand surgery resulting in loss of fingers, left ankle surgery. HOME MEDICATIONS: 1. Fluoxetine 20 mg p.o. q.a.m. 2. Atorvastatin 40 mg p.o. q.h.s. 3. Nexium 40 mg p.o. daily. 4. Trazodone 100 mg p.o. at bedtime. 5. Lisinopril 20 mg p.o. daily. 6. Atenolol 50 mg p.o. daily. ALLERGIES: NO KNOWN DRUG ALLERGIES. SOCIAL HISTORY: The patient ambulates with a cane. She lives with her brother and other sibling. She has quit drinking after her left ankle surgery. She drinks at least two glasses of wine daily. FAMILY HISTORY: Significant for alcoholism. PHYSICAL EXAMINATION: VITAL SIGNS: Blood pressure 150/80, pulse 80, respiratory rate 18. CVS: Regular rate and rhythm. CHEST: Clear. ABDOMEN: Soft. NECK: Supple. NEUROLOGICAL: Mental status, the patient is somewhat confused. She does have expressive aphasia and dysarthria. Cranial nerves 2 through 12 intact except 10, dysarthria. Motor; muscle tone and bulk are normal. Mild right upper and lower extremity 4/5; left upper and lower extremity 5/5. Right pronator drift. Cerebellar, finger-nose testing slow on the right. Sensory, withdraws to nailbed pressure bilaterally. Gait deferred due to the patient's safety reason. DATA REVIEWED: CT angiogram of the head and neck showed high-grade stenosis at the origin of the left internal carotid artery. There is no evidence of proximal stenosis or occlusion in either M1 segment. CT of the brain showed no acute intracranial pathology. ASSESSMENT AND PLAN: Ms. Neela Alberto is admitted because of an episode of dysarthria and also expressive aphasia. MRI of the brain reviewed which showed left cerebral infarct. There is evidence of cortical infarction suggesting embolic phenomena. Additional areas of white matter hyperintensities were seen in the deep structures suggesting possible component of watershed infarct. Permissive control of blood pressure at this time. Strict control of blood glucose. She also has high-grade left carotid stenosis. Consider CV Surgery input. Continue aspirin for secondary stroke prevention. Telemetry to rule out arrhythmias. 2D echo to evaluate for left ventricular ejection fraction. Continue high-intensity statin for secondary stroke prevention. PT/OT/speech. Continue home medication. Continue medical management per primary team. We will continue to follow. Thank you for the consult. Job ID: [id number] MTDD
[2020-02-18] MEDS: Sodium Chloride 0.9% 1,000 ML IV SCH (06:53)
[2020-02-18] MEDS: Atenolol 50 MG TAB PO SCH (07:02)
[2020-02-18] MEDS: Lisinopril 5 MG TAB PO SCH (07:02)
[2020-02-18] MEDS: Famotidine 20 MG TAB PO SCH ×2 (07:02→21:22)
--- NOTE | 2020-02-18 08:46 | PDOC.HOSPP ---
- Subjective Encounter Date: 02/18/20 Encounter Time: 08:15 Subjective: feels better, is able to move all extremities still has some speech issues no chest pain or palpitations - Objective Vital Signs & Weight: Vital Signs (12 hours) Temp Pulse Resp BP Pulse Ox 02/18/20 07:02 69 02/18/20 07:00 98.2 F 78 16 141/63 H 99 02/18/20 04:00 98.0 F 69 16 134/63 95 02/18/20 00:00 98.0 F 69 16 133/62 99 Weight Weight 113 lb 1.6 oz Result Diagrams: 02/18/20 04:56 02/18/20 04:56 Additional Labs: Accuchecks 02/17/20 10:33 POC Glucose 91 Hospitalist ROS - Medication Medications: Active Medications Generic Name Dose Route Start Last Admin Trade Name Freq PRN Reason Stop Dose Admin Atenolol 25 mg 02/18/20 09:00 02/18/20 07:02 Atenolol 50 Mg Tab PO 25 mg DAILY MACK Administration Atorvastatin Calcium 40 mg 02/17/20 21:00 02/17/20 21:29 Atorvastatin Calcium 40 Mg Tab PO 40 mg HS MACK Administration Famotidine 20 mg 02/17/20 21:00 02/18/20 07:02 Famotidine 20 Mg Tab PO 20 mg BID MACK Administration Sodium Chloride 1,000 mls @ 60 mls/hr 02/17/20 11:03 02/18/20 06:53 Normal Saline 0.9% IV Not Given .[id number] MACK Lisinopril 5 mg 02/18/20 09:00 02/18/20 07:02 Lisinopril 5 Mg Tab PO 5 mg DAILY MACK Administration Trazodone HCl 100 mg 02/17/20 21:00 02/17/20 21:29 Trazodone Hcl 50 Mg Tab PO 100 mg HS MACK Administration - Exam General Appearance: awake alert Eye: PERRL, anicteric sclera ENT: no oropharyngeal lesions, moist mucosa Neck: supple, no JVD Heart: RRR, murmur present Respiratory: no wheezes, no rales Gastrointestinal: soft, non-tender, non-distended, normal bowel sounds Extremities: no cyanosis, no edema Neurological: speech deficit Neurological - other findings: mild right hemiparesis Psychiatric: normal affect, A&O x 3 Hosp A/P (1) Acute CVA (cerebrovascular accident) Code(s): I63.9 - CEREBRAL INFARCTION, UNSPECIFIED Status: Acute (2) Left carotid stenosis Code(s): I65.22 - OCCLUSION AND STENOSIS OF LEFT CAROTID ARTERY Status: Acute (3) Aortic stenosis Code(s): I35.0 - NONRHEUMATIC AORTIC (VALVE) STENOSIS Status: Chronic Qualifiers: Cardiac valve disease etiology: nonrheumatic Qualified Code(s): I35.0 - Nonrheumatic aortic (valve) stenosis (4) HTN (hypertension) Code(s): I10 - ESSENTIAL (PRIMARY) HYPERTENSION Status: Chronic Qualifiers: Hypertension type: essential hypertension Qualified Code(s): I10 - Essential (primary) hypertension (5) Depression Code(s): F32.9 - MAJOR DEPRESSIVE DISORDER, SINGLE EPISODE, UNSPECIFIED Status: Chronic Qualifiers: Depression Type: unspecified Qualified Code(s): F32.9 - Major depressive disorder, single episode, unspecified - Plan is going for left carotid endarterectomy MRI confirms cva likely sub acute continue asp, lipitor, atenolol and lisinopril lower doses and prozac hemo/neurostable
[2020-02-18] MEDS ORDERED: Ondansetron PF 4 MG/2 ML Vial ONE (08:55)
[2020-02-18] MEDS ORDERED: PROPOFOL 200 MG/20 ML VIAL ONE (08:55)
[2020-02-18] MEDS ORDERED: Lidocaine 1% PF 5 ML VIAL ONE (08:55)
[2020-02-18] MEDS ORDERED: Esmolol 100 MG/10 ML VIAL ONE (08:55)
[2020-02-18] MEDS ORDERED: Ketorolac Tromethamine 30 MG/ML VIAL ONE (08:55)
[2020-02-18] MEDS ORDERED: Labetalol HCl 100 MG/20 ML VIAL ONE (08:55)
[2020-02-18] MEDS ORDERED: Dexamethasone 20 MG/5 ML VIAL ONE (08:55)
[2020-02-18] MEDS ORDERED: Rocuronium Bromide 10 MG/ML (10ML VIAL) ONE (08:55)
[2020-02-18] MEDS ORDERED: Glycopyrrolate 0.2 MG/ML 5 ML SYRINGE ONE (08:55)
[2020-02-18] MEDS ORDERED: ePHEDrine 50 MG/ML VIAL ONE (08:55)
[2020-02-18] MEDS ORDERED: PHENYLEPHRINE-NS 100 MCG/ML 10 ML SYRINGE ONE (08:55)
[2020-02-18] MEDS ORDERED: Aspirin 325 mg Enteric Coated Tablet PO SCH (09:00)
[2020-02-18] MEDS ORDERED: Enoxaparin Sodium 40 MG/0.4 ML SYRINGE SC SCH ×2 (09:00)
[2020-02-18] MEDS ORDERED: Fentanyl 100 MCG/2 ML VIAL ONE (09:01)
[2020-02-18] MEDS ORDERED: Heparin 5,000 UNITS/ML VIAL ONE (09:04)
[2020-02-18] MEDS ORDERED: Protamine Sulfate 50 MG/5 ML VIAL ONE (09:04)
[2020-02-18] MEDS ORDERED: Promethazine HCl 25 MG/ML VIAL IM PRN (11:04)
[2020-02-18] MEDS ORDERED: Ondansetron HCl/PF 4 MG/2 ML Vial IVP PRN (11:04)
[2020-02-18] MEDS ORDERED: Promethazine HCl 25 MG/ML VIAL SLOW IVP PRN (11:04)
[2020-02-18] MEDS ORDERED: HYDROcodone/Acetaminophen 5/325 mg Tablet PO PRN ×2 (11:49)
[2020-02-18] MEDS ORDERED: Phenylephrine 40 MG in Sodium Chloride 0.9% 250 ML 250 ML IVPB PRN (11:49)
[2020-02-18] MEDS ORDERED: Fentanyl 100 MCG/2 ML VIAL SLOW IVP PRN (11:49)
[2020-02-18] MEDS ORDERED: Sodium Chloride 0.9% 1,000 ML IV SCH (11:49)
[2020-02-18] MEDS ORDERED: HYDROcodone/Acetaminophen 5/325 mg Tablet ONE (11:57)
--- NOTE | 2020-02-18 15:37 | OP ---
DATE OF PROCEDURE: 02/18/2020 PREOPERATIVE DIAGNOSES: Left carotid stenosis with thrombus and recent stroke. PROCEDURE PERFORMED: Left carotid endarterectomy with bovine patch angioplasty. ANESTHESIA: General. ESTIMATED BLOOD LOSS: 100. DESCRIPTION OF PROCEDURE: After adequate anesthesia had been obtained, a right common femoral arterial line was placed with a single puncture, placing a 5-Kenyan catheter. Following this, the left neck had an ultrasound done and was then prepped and draped. Incision was made, dividing the platysma, rotating sternocleidomastoid muscle, and exposing the common, internal, and external, taking care to minimize dissection and touching of the carotid. After 5000 units of heparin with a good ACT level, clamps were applied first to the internal and then to the external, and common was controlled with the loop. Arteriotomy performed and indeed there was a soft plaque that was extending from the high-grade stenosis distally. After aspirating this and irrigating, the 10-Kenyan shunt was placed, and an endarterectomy was performed with satisfactory tapering distally. The area was thoroughly irrigated, and after a bovine patch has been secured with a 6-0 Prolene suture, the shunt was removed. The suture line completed and the area irrigated and then flow restored up the external and then internal carotid artery. Following this, protamine was given to reverse the heparin, and after obtaining good hemostasis, the wound was irrigated and closed in layers. Job ID: [id number]
[2020-02-18] MEDS: FLUoxetine HCl 20 MG CAP PO SCH (17:43)
[2020-02-18] MEDS: CEFAZOLIN 1 GM in Premix Bag 1 BAG IVPB SCH (17:44)
[2020-02-18] MEDS: traZODone HCl 50 MG TAB PO SCH (21:22)
[2020-02-18] MEDS: Atorvastatin Calcium 40 MG TAB PO SCH (21:22)
[2020-02-19] MEDS: CEFAZOLIN 1 GM in Premix Bag 1 BAG IVPB SCH (01:14)
[2020-02-19] MEDS: ceFAZolin 1 GM/D5W 1 GM in Premix Bag 1 BAG IVPB SCH ×3 (01:15→16:42)
--- NOTE | 2020-02-19 07:53 | PRG ---
DATE OF SERVICE: The patient had an uneventful night. She is sitting in the chair this morning, a bit frustrated with the fact that she has had to call the nurses multiple times before they command. In any event, her neck looks fine with no significant swelling. She still has some expressive aphasia, perhaps a little worse than previously, but she is upset this morning and would probably do better. She was a little calmer. Right hand strength is the same. The patient has not yet ambulated since admission to the hospital, so we will have to get Physical Therapy involved to make sure she is independent enough to go home. She was using a cane prior to coming in related to her left ankle fracture from April of this year, complicated by wound infection. In any event, we will make sure Physical Therapy is back on board. Job ID: [id number]
[2020-02-19] MEDS: FLUoxetine HCl 20 MG CAP PO SCH (08:35)
[2020-02-19] MEDS: Famotidine 20 MG TAB PO SCH ×2 (08:35→20:42)
[2020-02-19] MEDS: Lisinopril 5 MG TAB PO SCH (08:35)
[2020-02-19] MEDS: Atenolol 50 MG TAB PO SCH (08:36)
[2020-02-19] MEDS: Aspirin Chewable 81 MG TAB PO SCH (08:36)
--- NOTE | 2020-02-19 12:30 | PDOC.NEUPN ---
- Subjective Encounter Date: 02/19/20 Subjective: Ms. Alberto is s/p carotid endarterectomy and has been doing well. She does have persisted speech deficits from the stroke - Objective Vital Signs & Weight: Vital Signs (12 hours) Temp Pulse Pulse Pulse Resp BP BP 02/19/20 11:15 02/19/20 11:00 97.8 F 59 L 20 02/19/20 08:50 79 72 105/47 L 99/57 L 02/19/20 07:29 98.0 F 02/19/20 04:40 97.5 F L 02/19/20 00:38 BP Pulse Ox Pulse Ox Pulse Ox 02/19/20 11:15 100 02/19/20 11:00 105/51 L 100 02/19/20 08:50 100 97 02/19/20 07:29 02/19/20 04:40 02/19/20 00:38 96 Weight Admit Weight 113 lb 1.6 oz Weight 113 lb 1.6 oz Most Recent Monitor Data Heart Rate from ECG 69 NIBP 114/48 NIBP BP-Mean 70 Respiration from ECG 20 SpO2 100 I&O: 02/18/20 02/19/20 02/20/20 06:59 06:59 06:59 Intake Total 656.5 460 Output Total 650 250 Balance 6.5 210 Result Diagrams: 02/18/20 04:56 02/18/20 04:56 Radiology Reviewed by me: Yes EKG Reviewed by me: Yes ROS - Review of Systems ROS unobtainable: due to mental status (Speech deficits) - Medication Medications: Active Medications Generic Name Dose Route Start Last Admin Trade Name Freq PRN Reason Stop Dose Admin Hydrocodone Bitart/Acetaminophen 1 tab 02/18/20 11:49 02/18/20 21:34 Hydrocodone/Acetaminophen 5/325 Mg Tablet PO 1 tab Q4H PRN Administration Mild Pain (1-3) Aspirin 81 mg 02/19/20 09:00 02/19/20 08:36 Aspirin Chewable 81 Mg Tab PO 81 mg QAM MACK Administration Atenolol 25 mg 02/18/20 09:00 02/19/20 08:36 Atenolol 50 Mg Tab PO 25 mg DAILY MACK Administration Atorvastatin Calcium 40 mg 02/17/20 21:00 02/18/20 21:22 Atorvastatin Calcium 40 Mg Tab PO 40 mg HS MACK Administration Famotidine 20 mg 02/17/20 21:00 02/19/20 08:35 Famotidine 20 Mg Tab PO 20 mg BID MACK Administration Fluoxetine HCl 20 mg 02/18/20 09:00 02/19/20 08:35 Fluoxetine Hcl 20 Mg Cap PO 20 mg DAILY MACK Administration Cefazolin Sodium/Dextrose 1 gm 50 mls @ 200 mls/hr 02/19/20 01:00 02/19/20 08:35 / Device IVPB 02/19/20 17:14 50 mls 0100,0900,1700 MACK Administration Lisinopril 5 mg 02/18/20 09:00 02/19/20 08:35 Lisinopril 5 Mg Tab PO 5 mg DAILY MACK Administration Trazodone HCl 100 mg 02/17/20 21:00 02/18/20 21:22 Trazodone Hcl 50 Mg Tab PO 100 mg HS MACK Administration - Exam General Appearance: awake alert Eye: PERRL ENT: normocephalic atraumatic Neck: supple Respiratory: CTAB Cardiovascular: RRR Gastrointestinal: soft Extremities: no cyanosis Neurological: no new deficit, speech deficit Musculoskeletal: normal tone, no muscle wasting PSYCH: normal affect, normal behavior Results - Labs Result Diagrams: 02/18/20 04:56 02/18/20 04:56 Lab results: WBC 5.3 thou/uL (4.8-10.8) 02/18/20 04:56 Hgb 11.0 g/dL (12.0-16.0) L 02/18/20 04:56 Hct 33.2 % (36.0-47.0) L 02/18/20 04:56 MCV 103.0 fL (78.0-98.0) H 02/18/20 04:56 Plt Count 206 thou/uL (130-400) 02/18/20 04:56 Neutrophils % 68.1 % (42.0-75.0) 02/17/20 11:00 Sodium 139 mmol/L (136-145) 02/18/20 04:56 Potassium 4.4 mmol/L (3.5-5.1) 02/18/20 04:56 Chloride 105 mmol/L (98-107) 02/18/20 04:56 Carbon Dioxide 28 mmol/L (23-31) 02/18/20 04:56 BUN 6 mg/dL (9.8-20.1) L 02/18/20 04:56 Creatinine 0.76 mg/dL (0.6-1.1) 02/18/20 04:56 Glucose 92 mg/dL (83-110) 02/18/20 04:56 Calcium 9.2 mg/dL (7.8-10.44) 02/18/20 04:56 Total Bilirubin 0.4 mg/dL (0.2-1.2) 02/17/20 11:00 AST 23 U/L (5-34) 02/17/20 11:00 ALT 18 U/L (8-55) 02/17/20 11:00 Alkaline Phosphatase 54 U/L (40-110) 02/17/20 11:00 Serum Total Protein 6.2 g/dL (6.0-8.3) 02/17/20 11:00 Albumin 3.8 g/dL (3.4-4.8) 02/17/20 11:00 Urine Ketones Negative mg/dL (Negative) 02/17/20 11:12 Urine Blood Negative (Negative) 02/17/20 11:12 Urine Nitrite Negative (Negative) 02/17/20 11:12 Ur Leukocyte Esterase Negative Ray/uL (Negative) 02/17/20 11:12 - Radiology Interpretation MRI - head Additional Comment: MRI of the brain showed left cerebral infarct PN A/P (1) Acute CVA (cerebrovascular accident) Code(s): I63.9 - CEREBRAL INFARCTION, UNSPECIFIED Status: Acute (2) Left carotid stenosis Code(s): I65.22 - OCCLUSION AND STENOSIS OF LEFT CAROTID ARTERY Status: Acute (3) Aortic stenosis Code(s): I35.0 - NONRHEUMATIC AORTIC (VALVE) STENOSIS Status: Chronic Qualifiers: Cardiac valve disease etiology: nonrheumatic Qualified Code(s): I35.0 - Nonrheumatic aortic (valve) stenosis (4) Depression Code(s): F32.9 - MAJOR DEPRESSIVE DISORDER, SINGLE EPISODE, UNSPECIFIED Status: Chronic Qualifiers: Depression Type: unspecified Qualified Code(s): F32.9 - Major depressive disorder, single episode, unspecified (5) HTN (hypertension) Code(s): I10 - ESSENTIAL (PRIMARY) HYPERTENSION Status: Chronic Qualifiers: Hypertension type: essential hypertension Qualified Code(s): I10 - Essential (primary) hypertension - Plan Daily Plan: PT/OT, speech therapy, DVT proph w/SCDs Ms. Neela Alberto is a 74-year-old female who presented with strokelike symptoms. MRI of the brain consistent with acute infarction. MRI of the brain reviewed which was consistent with a left cerebral infarct. 2D echo showed left ventricular ejection fraction 60 to 65%. No thrombus or PFO. CTA of the head and neck showed hemodynamically significant stenosis in the left carotid artery. She is status post left carotid endarterectomy by Dr. Shukla on 02/18/2020 and has been doing well. Continue aspirin and high intensity statin for secondary stroke prevention. Monitor control of blood pressure and blood glucose. Continue home medications. Continue telemetry to rule out arrhythmias. PT/OT/speech. Continue medical management per primary team. Plan discussed with the patient.
--- NOTE | 2020-02-19 17:13 | PDOC.HOSPP ---
- Subjective Encounter Date: 02/19/20 Encounter Time: 08:00 Subjective: is sitting in chair, no chest pain or palp no new weakness still has some difficulty talking - Objective Vital Signs & Weight: Vital Signs (12 hours) Temp Pulse Pulse Pulse Resp BP BP 02/19/20 15:35 97.8 F 65 14 02/19/20 12:27 97.7 F 59 L 16 02/19/20 11:15 02/19/20 11:00 97.8 F 59 L 20 02/19/20 08:50 79 72 105/47 L 99/57 L 02/19/20 07:29 98.0 F BP Pulse Ox Pulse Ox Pulse Ox 02/19/20 15:35 113/49 L 99 02/19/20 12:27 125/59 L 99 02/19/20 11:15 100 02/19/20 11:00 105/51 L 100 02/19/20 08:50 100 97 02/19/20 07:29 Weight Admit Weight 113 lb 1.6 oz Weight 113 lb 1.6 oz Most Recent Monitor Data Heart Rate from ECG 69 NIBP 114/48 NIBP BP-Mean 70 Respiration from ECG 20 SpO2 100 I&O: 02/18/20 02/19/20 02/20/20 06:59 06:59 06:59 Intake Total 656.5 1230 Output Total 650 250 Balance 6.5 980 Result Diagrams: 02/18/20 04:56 02/18/20 04:56 Hospitalist ROS - Medication Medications: Active Medications Generic Name Dose Route Start Last Admin Trade Name Freq PRN Reason Stop Dose Admin Hydrocodone Bitart/Acetaminophen 1 tab 02/18/20 11:49 02/18/20 21:34 Hydrocodone/Acetaminophen 5/325 Mg Tablet PO 1 tab Q4H PRN Administration Mild Pain (1-3) Aspirin 81 mg 02/19/20 09:00 02/19/20 08:36 Aspirin Chewable 81 Mg Tab PO 81 mg QAM MACK Administration Atenolol 25 mg 02/18/20 09:00 02/19/20 08:36 Atenolol 50 Mg Tab PO 25 mg DAILY MACK Administration Atorvastatin Calcium 40 mg 02/17/20 21:00 02/18/20 21:22 Atorvastatin Calcium 40 Mg Tab PO 40 mg HS MACK Administration Famotidine 20 mg 02/17/20 21:00 02/19/20 08:35 Famotidine 20 Mg Tab PO 20 mg BID MACK Administration Fluoxetine HCl 20 mg 02/18/20 09:00 02/19/20 08:35 Fluoxetine Hcl 20 Mg Cap PO 20 mg DAILY MACK Administration Cefazolin Sodium/Dextrose 1 gm 50 mls @ 200 mls/hr 02/19/20 01:00 02/19/20 16:42 / Device IVPB 02/19/20 17:14 50 mls 0100,0900,1700 MACK Administration Lisinopril 5 mg 02/18/20 09:00 02/19/20 08:35 Lisinopril 5 Mg Tab PO 5 mg DAILY MACK Administration Trazodone HCl 100 mg 02/17/20 21:00 02/18/20 21:22 Trazodone Hcl 50 Mg Tab PO 100 mg HS MACK Administration - Exam General Appearance: awake alert Eye: PERRL, anicteric sclera ENT: no oropharyngeal lesions, moist mucosa Neck: supple, no JVD Heart: RRR, no murmur Respiratory: no wheezes, no rales Gastrointestinal: soft, non-tender, non-distended, normal bowel sounds Extremities: no cyanosis, no edema Neurological: cranial nerve grossly intact Psychiatric: normal affect, A&O x 3 Hosp A/P (1) Acute CVA (cerebrovascular accident) Code(s): I63.9 - CEREBRAL INFARCTION, UNSPECIFIED Status: Acute (2) Left carotid stenosis Code(s): I65.22 - OCCLUSION AND STENOSIS OF LEFT CAROTID ARTERY Status: Acute (3) Aortic stenosis Code(s): I35.0 - NONRHEUMATIC AORTIC (VALVE) STENOSIS Status: Chronic Qualifiers: Cardiac valve disease etiology: nonrheumatic Qualified Code(s): I35.0 - Nonrheumatic aortic (valve) stenosis (4) HTN (hypertension) Code(s): I10 - ESSENTIAL (PRIMARY) HYPERTENSION Status: Chronic Qualifiers: Hypertension type: essential hypertension Qualified Code(s): I10 - E ssential (primary) hypertension (5) Depression Code(s): F32.9 - MAJOR DEPRESSIVE DISORDER, SINGLE EPISODE, UNSPECIFIED Status: Chronic Qualifiers: Depression Type: unspecified Qualified Code(s): F32.9 - Major depressive disorder, single episode, unspecified - Plan is s/p left carotid endarterectomy, doing well continue asp, lipitor, atenolol and lisinopril lower doses and prozac hemo/neurostable dc plan to rehab anytime if accepted
[2020-02-19] MEDS: traZODone HCl 50 MG TAB PO SCH (20:42)
[2020-02-19] MEDS: Atorvastatin Calcium 40 MG TAB PO SCH (20:42)
[2020-02-20] MEDS: Aspirin Chewable 81 MG TAB PO SCH (08:37)
[2020-02-20] MEDS: Famotidine 20 MG TAB PO SCH ×2 (08:37→21:26)
[2020-02-20] MEDS: Atenolol 50 MG TAB PO SCH (08:38)
[2020-02-20] MEDS: FLUoxetine HCl 20 MG CAP PO SCH (08:39)
[2020-02-20] MEDS: Lisinopril 5 MG TAB PO SCH (08:39)
--- NOTE | 2020-02-20 10:10 | PDOC.HOSPP ---
- Subjective Encounter Date: 02/20/20 Encounter Time: 09:00 Subjective: feels better still has some speech difficulty but is able to communicate better now has amb with PT - Objective Vital Signs & Weight: Vital Signs (12 hours) Temp Pulse Resp BP Pulse Ox 02/20/20 08:43 98 F 72 18 113/53 L 100 02/20/20 03:56 97.8 F 58 L 16 142/66 H 99 02/20/20 02:33 98 02/19/20 23:54 98.0 F 54 L 16 132/63 98 Weight Admit Weight 113 lb 1.6 oz Weight 113 lb 1.6 oz Most Recent Monitor Data Heart Rate from ECG 69 NIBP 114/48 NIBP BP-Mean 70 Respiration from ECG 20 SpO2 100 I&O: 02/19/20 02/20/20 02/21/20 06:59 06:59 06:59 Intake Total 656.5 1940 107 Output Total 650 250 Balance 6.5 1690 107 Result Diagrams: 02/18/20 04:56 02/18/20 04:56 Hospitalist ROS - Medication Medications: Active Medications Generic Name Dose Route Start Last Admin Trade Name Freq PRN Reason Stop Dose Admin Hydrocodone Bitart/Acetaminophen 1 tab 02/18/20 11:49 02/18/20 21:34 Hydrocodone/Acetaminophen 5/325 Mg Tablet PO 1 tab Q4H PRN Administration Mild Pain (1-3) Aspirin 81 mg 02/19/20 09:00 02/20/20 08:37 Aspirin Chewable 81 Mg Tab PO 81 mg QAM MACK Administration Atenolol 25 mg 02/18/20 09:00 02/20/20 08:38 Atenolol 50 Mg Tab PO 25 mg DAILY MACK Administration Atorvastatin Calcium 40 mg 02/17/20 21:00 02/19/20 20:42 Atorvastatin Calcium 40 Mg Tab PO 40 mg HS MACK Administration Famotidine 20 mg 02/17/20 21:00 02/20/20 08:37 Famotidine 20 Mg Tab PO 20 mg BID MACK Administration Fluoxetine HCl 20 mg 02/18/20 09:00 02/20/20 08:39 Fluoxetine Hcl 20 Mg Cap PO 20 mg DAILY MACK Administration Lisinopril 5 mg 02/18/20 09:00 02/20/20 08:39 Lisinopril 5 Mg Tab PO 5 mg DAILY MACK Administration Trazodone HCl 100 mg 02/17/20 21:00 02/19/20 20:42 Trazodone Hcl 50 Mg Tab PO 100 mg HS MACK Administration - Exam General Appearance: awake alert Eye: PERRL, anicteric sclera ENT: no oropharyngeal lesions, moist mucosa Neck: supple, no JVD Neck - other findings: left neck surgical incision is clean Heart: RRR, no murmur Respiratory: no wheezes, no rales Gastrointestinal: soft, non-tender, non-distended, normal bowel sounds Extremities: no cyanosis, no edema Neurological: cranial nerve grossly intact, no focal deficits Psychiatric: normal affect, A&O x 3 Hosp A/P (1) Acute CVA (cerebrovascular accident) Code(s): I63.9 - CEREBRAL INFARCTION, UNSPECIFIED Status: Acute (2) Left carotid stenosis Code(s): I65.22 - OCCLUSION AND STENOSIS OF LEFT CAROTID ARTERY Status: Acute (3) Aortic stenosis Code(s): I35.0 - NONRHEUMATIC AORTIC (VALVE) STENOSIS Status: Chronic Qualifiers: Cardiac valve disease etiology: nonrheumatic Qualified Code(s): I35.0 - Nonrheumatic aortic (valve) stenosis (4) HTN (hypertension) Code(s): I10 - ESSENTIAL (PRIMARY) HYPERTENSION Status: Chronic Qualifiers: Hypertension type: essential hypertension Qualified Code(s): I10 - Essential (primary) hypertension (5) Depression Code(s): F32.9 - MAJOR DEPRESSIVE DISORDER, SINGLE EPISODE, UNSPECIFIED Status: Chronic Qualifiers: Depression Type: unspecified Qualified Code(s): F32.9 - Major depressive disorder, single episode, unspecified - Plan s/p left carotid endarterectomy, ac cva, doing well continue asp, lipitor, atenolol and lisinopril lower doses and prozac hemo/neurostable dc plan to rehab anytime if accepted, d/w CM
--- NOTE | 2020-02-20 14:04 | PDOC.NEUPN ---
- Subjective Encounter Date: 02/20/20 Subjective: Ms. Alberto is doing much better this morning. She denies any new complaints and speech is also improved since admission. - Objective Vital Signs & Weight: Vital Signs (12 hours) Temp Pulse Resp BP Pulse Ox 02/20/20 12:41 98.4 F 65 18 124/57 L 100 02/20/20 08:43 98 F 72 18 113/53 L 100 02/20/20 03:56 97.8 F 58 L 16 142/66 H 99 02/20/20 02:33 98 Weight Admit Weight 113 lb 1.6 oz Weight 113 lb 1.6 oz Most Recent Monitor Data Heart Rate from ECG 69 NIBP 114/48 NIBP BP-Mean 70 Respiration from ECG 20 SpO2 100 I&O: 02/19/20 02/20/20 02/21/20 06:59 06:59 06:59 Intake Total 656.5 1940 107 Output Total 650 250 Balance 6.5 1690 107 Result Diagrams: 02/18/20 04:56 02/18/20 04:56 Radiology Reviewed by me: Yes EKG Reviewed by me: Yes ROS - Review of Systems Constitutional: denies: fever, chills, sweats, weakness, malaise, other Eyes: denies: pain, vision change, conjunctivae inflammation, eyelid inflammation, redness, other ENT: denies: ear pain, ear discharge, nose pain, nose discharge, nose congestion, mouth pain, mouth swelling, throat pain, throat swelling, other Respiratory: denies: cough, dry, shortness of breath, hemoptysis, SOB with excertion, pleuritic pain, sputum, wheezing, other Gastrointestinal: denies: nausea, vomiting, abdominal pain, diarrhea, constipation, melena, hematochezia, other Musculoskeletal: denies: neck pain, shoulder pain, arm pain, back pain, hand pain, leg pain, foot pain, other All Systems: All other systems reviewed; all pertinent +/- noted in HPI/Subj - Medication Medications: Active Medications Generic Name Dose Route Start Last Admin Trade Name Freq PRN Reason Stop Dose Admin Hydrocodone Bitart/Acetaminophen 1 tab 02/18/20 11:49 02/18/20 21:34 Hydrocodone/Acetaminophen 5/325 Mg Tablet PO 1 tab Q4H PRN Administration Mild Pain (1-3) Aspirin 81 mg 02/19/20 09:00 02/20/20 08:37 Aspirin Chewable 81 Mg Tab PO 81 mg QAM MACK Administration Atenolol 25 mg 02/18/20 09:00 02/20/20 08:38 Atenolol 50 Mg Tab PO 25 mg DAILY MACK Administration Atorvastatin Calcium 40 mg 02/17/20 21:00 02/19/20 20:42 Atorvastatin Calcium 40 Mg Tab PO 40 mg HS MACK Administration Famotidine 20 mg 02/17/20 21:00 02/20/20 08:37 Famotidine 20 Mg Tab PO 20 mg BID MACK Administration Fluoxetine HCl 20 mg 02/18/20 09:00 02/20/20 08:39 Fluoxetine Hcl 20 Mg Cap PO 20 mg DAILY MACK Administration Lisinopril 5 mg 02/18/20 09:00 02/20/20 08:39 Lisinopril 5 Mg Tab PO 5 mg DAILY MACK Administration Trazodone HCl 100 mg 02/17/20 21:00 02/19/20 20:42 Trazodone Hcl 50 Mg Tab PO 100 mg HS MACK Administration - Exam General Appearance: awake alert Eye: PERRL ENT: normocephalic atraumatic Neck: supple Respiratory: CTAB Cardiovascular: RRR Gastrointestinal: soft Extremities: no cyanosis Neurological: no new deficit Musculoskeletal: normal tone, normal strength, no muscle wasting PSYCH: normal affect, normal behavior, oriented to person, oriented to place, oriented to time Results - Labs Result Diagrams: 02/18/20 04:56 02/18/20 04:56 Lab results: WBC 5.3 thou/uL (4.8-10.8) 02/18/20 04:56 Hgb 11.0 g/dL (12.0-16.0) L 02/18/20 04:56 Hct 33.2 % (36.0-47.0) L 02/18/20 04:56 MCV 103.0 fL (78.0-98.0) H 02/18/20 04:56 Plt Count 206 thou/uL (130-400) 02/18/20 04:56 Neutrophils % 68.1 % (42.0-75.0) 02/17/20 11:00 Sodium 139 mmol/L (136-145) 02/18/20 04:56 Potassium 4.4 mmol/L (3.5-5.1) 02/18/20 04:56 Chloride 105 mmol/L (98-107) 02/18/20 04:56 Carbon Dioxide 28 mmol/L (23-31) 02/18/20 04:56 BUN 6 mg/dL (9.8-20.1) L 02/18/20 04:56 Creatinine 0.76 mg/dL (0.6-1.1) 02/18/20 04:56 Glucose 92 mg/dL (83-110) 02/18/20 04:56 Calcium 9.2 mg/dL (7.8-10.44) 02/18/20 04:56 Total Bilirubin 0.4 mg/dL (0.2-1.2) 02/17/20 11:00 AST 23 U/L (5-34) 02/17/20 11:00 ALT 18 U/L (8-55) 02/17/20 11:00 Alkaline Phosphatase 54 U/L (40-110) 02/17/20 11:00 Serum Total Protein 6.2 g/dL (6.0-8.3) 02/17/20 11:00 Albumin 3.8 g/dL (3.4-4.8) 02/17/20 11:00 Urine Ketones Negative mg/dL (Negative) 02/17/20 11:12 Urine Blood Negative (Negative) 02/17/20 11:12 Urine Nitrite Negative (Negative) 02/17/20 11:12 Ur Leukocyte Esterase Negative Ray/uL (Negative) 02/17/20 11:12 - Radiology Interpretation MRI - head Additional Comment: MRI of the brain showed left cerebral infarct PN A/P (1) Acute CVA (cerebrovascular accident) Code(s): I63.9 - CEREBRAL INFARCTION, UNSPECIFIED Status: Acute (2) Left carotid stenosis Code(s): I65.22 - OCCLUSION AND STENOSIS OF LEFT CAROTID ARTERY Status: Acute (3) Aortic stenosis Code(s): I35.0 - NONRHEUMATIC AORTIC (VALVE) STENOSIS Status: Chronic Qualifiers: Cardiac valve disease etiology: nonrheumatic Qualified Code(s): I35.0 - Nonrheumatic aortic (valve) stenosis (4) Depression Code(s): F32.9 - MAJOR DEPRESSIVE DISORDER, SINGLE EPISODE, UNSPECIFIED Status: Chronic Qualifiers: Depression Type: unspecified Qualified Code(s): F32.9 - Major depressive disorder, single episode, unspecified (5) HTN (hypertension) Code(s): I10 - ESSENTIAL (PRIMARY) HYPERTENSION Status: Chronic Qualifiers: Hypertension type: essential hypertension Qualified Code(s): I10 - Essential (primary) hypertension - Plan Daily Plan: PT/OT, speech therapy, out of bed/ambulate Ms. Neela Alberto is a 74-year-old female who presented with strokelike symptoms. MRI of the brain consistent with acute infarction. She is status post carotid endarterectomy on 02/18/2020 and has been doing really well. Her speech is improved and she denies any new complaints in the last 24 hours. MRI of the brain reviewed which was consistent with a left cerebral infarct. 2D echo showed left ventricular ejection fraction 60 to 65%. No thrombus or PFO. CTA of the head and neck showed hemodynamically significant stenosis in the left carotid artery. She is status post left carotid endarterectomy by Dr. Shukla on 02/18/2020 and has been doing well. Continue aspirin and high intensity statin for secondary stroke prevention. Monitor control of blood pressure and blood glucose. Continue home medications. Continue telemetry to rule out arrhythmias. PT/OT/speech. Continue medical management per primary team. Case management on board regarding discharge planning Awaiting discharge to rehab. Plan discussed with the patient.
[2020-02-20] MEDS: Acetaminophen 325 MG TAB PO PRN (16:10)
[2020-02-20] MEDS: Atorvastatin Calcium 40 MG TAB PO SCH (21:26)
[2020-02-20] MEDS: traZODone HCl 50 MG TAB PO SCH (21:26)
[2020-02-20] MEDS: Senokot S 8.6-50 MG TAB PO PRN (21:37)
[2020-02-21] MEDS: Aspirin Chewable 81 MG TAB PO SCH (08:28)
[2020-02-21] MEDS: Lisinopril 5 MG TAB PO SCH (08:29)
[2020-02-21] MEDS: Atenolol 50 MG TAB PO SCH (08:29)
[2020-02-21] MEDS: Famotidine 20 MG TAB PO SCH ×2 (08:30→20:08)
[2020-02-21] MEDS: FLUoxetine HCl 20 MG CAP PO SCH (08:31)
[2020-02-21] MEDS: Senokot S 8.6-50 MG TAB PO PRN (08:31)
[2020-02-21] MEDS: Acetaminophen 325 MG TAB PO PRN (14:29)
--- NOTE | 2020-02-21 15:18 | EKG ---
Test Reason : Blood Pressure : / mmHG Vent. Rate : 083 BPM Atrial Rate : 083 BPM P-R Int : 142 ms QRS Dur : 084 ms QT Int : 366 ms P-R-T Axes : 000 191 131 degrees QTc Int : 430 ms Normal sinus rhythm Right superior axis deviation Abnormal ECG Confirmed by MARYANN MAE ([id number]), telegraph editor KIMBERLEE ERICKSON ([id number]) on 02/21/2020 3:18:23 PM Referred By: Confirmed By:MARYANN Land
--- NOTE | 2020-02-21 16:23 | PDOC.HOSPP ---
- Subjective Encounter Date: 02/21/20 Encounter Time: 09:00 Subjective: Patient seen and examined for acute CVA. Denies any new focal deficit. No chest pain, shortness of breath, palpitations, leg swelling, cough or wheezing reported. - Objective Vital Signs & Weight: Vital Signs (12 hours) Temp Pulse Resp BP BP Pulse Ox 02/21/20 15:07 98 F 67 16 117/58 L 98 02/21/20 11:13 97.4 F L 61 16 146/65 H 99 02/21/20 07:53 97.7 F 59 L 16 170/71 H 100 Weight Admit Weight 113 lb 1.6 oz Weight 113 lb 1.6 oz Most Recent Monitor Data Heart Rate from ECG 69 NIBP 114/48 NIBP BP-Mean 70 Respiration from ECG 20 SpO2 100 I&O: 02/20/20 02/21/20 02/22/20 06:59 06:59 06:59 Intake Total 1940 917 Output Total 250 Balance 1690 917 Result Diagrams: 02/18/20 04:56 02/18/20 04:56 EKG Reviewed by me: Yes (Sinus rhythm on telemetry) Hospitalist ROS - Review of Systems Cardiovascular: denies: chest pain, palpitations, orthopnea, paroxysmal noc. dyspnea, edema, light headedness, other Gastrointestinal: denies: nausea, vomiting, abdominal pain, diarrhea, constipation, melena, hematochezia, other - Medication Medications: Active Medications Generic Name Dose Route Start Last Admin Trade Name Freq PRN Reason Stop Dose Admin Acetaminophen 650 mg 02/18/20 11:49 02/21/20 14:29 Acetaminophen 325 Mg Tab PO 650 mg Q4H PRN Administration Fever > 101 or headache Hydrocodone Bitart/Acetaminophen 1 tab 02/18/20 11:49 02/18/20 21:34 Hydrocodone/Acetaminophen 5/325 Mg Tablet PO 1 tab Q4H PRN Administration Mild Pain (1-3) Aspirin 81 mg 02/19/20 09:00 02/21/20 08:28 Aspirin Chewable 81 Mg Tab PO 81 mg QAM MACK Administration Atenolol 25 mg 02/18/20 09:00 02/21/20 08:29 Atenolol 50 Mg Tab PO 25 mg DAILY MACK Administration Atorvastatin Calcium 40 mg 02/17/20 21:00 02/20/20 21:26 Atorvastatin Calcium 40 Mg Tab PO 40 mg HS MACK Administration Famotidine 20 mg 02/17/20 21:00 02/21/20 08:30 Famotidine 20 Mg Tab PO 20 mg BID MACK Administration Fluoxetine HCl 20 mg 02/18/20 09:00 02/21/20 08:31 Fluoxetine Hcl 20 Mg Cap PO 20 mg DAILY MACK Administration Lisinopril 5 mg 02/18/20 09:00 02/21/20 08:29 Lisinopril 5 Mg Tab PO 5 mg DAILY MACK Administration Senna/Docusate Sodium 2 tab 02/17/20 11:03 02/21/20 08:31 Senokot S 8.6-50 Mg Tab PO 2 tab BIDPRN PRN Administration Constipation Trazodone HCl 100 mg 02/17/20 21:00 02/20/20 21:26 Trazodone Hcl 50 Mg Tab PO 100 mg HS MACK Administration - Exam General Appearance: NAD Heart: RRR, no gallops Respiratory: no wheezes, no ronchi Gastrointestinal: soft, non-tender, normal bowel sounds Extremities: no cyanosis, no clubbing Neurological: no new deficit, speech deficit Psychiatric: normal affect, A&O x 3 Hosp A/P - Plan DVT proph w/SCDs Acute CVA Left carotid stenosis status post carotid endarterectomy this admission Hypertension Dyslipidemia CKD stage II Hyponatremia Macrocytic anemia Anxiety Insomnia Plan: Continue aspirin, statins, atenolol and lisinopril. Await rehab placement. Continue close monitoring. Continue physical therapy/Occupational Therapy. Add vitamin B12 and folic acid supplementation
[2020-02-21] MEDS: traZODone HCl 50 MG TAB PO SCH (20:09)
[2020-02-21] MEDS: Atorvastatin Calcium 40 MG TAB PO SCH (20:09)
[2020-02-22 04:53] LABS: #Basophils 0.1 thou/uL (0.0-0.2); #Eosinphils 0.2 thou/uL (0.0-0.7); #Lymphocytes 1.6 thou/uL (1.20-3.40); #Monocytes 1.1 thou/uL (0.11-0.59); #Neutrophils 4.8 thou/uL (1.40-6.50); %Basophils 0.7 % (0.0-1.0); %Eosinophils 2.6 % (0.0-10.0); %Lymphocytes 20.7 % (21.0-51.0); %Monocytes 14.6 % (0.0-10.0); %Neutrophils 61.5 % (42.0-75.0); Hemoglobin 11.2 g/dL (12.0-16.0); Mean Corpuscular HGB CONC 33.3 g/dL (32.0-36.0); Mean Corpuscular Hemoglobin 33.8 pg (27.0-31.0); Mean Platelet Volume 7.5 fL (7.4-10.4); Platelet Count 219 thou/uL (130-400); RBC Distribution Width 10.8 % (11.5-14.5); Red Blood Cell (RBC) Count 3.31 mill/uL (4.20-5.40); White Blood Cell (WBC) Count 7.8 thou/uL (4.8-10.8)
[2020-02-22 05:24] LABS: Anion Gap 12 mmol/L (10-20); BUN (Urea Nitrogen) 9 mg/dL (9.8-20.1); Calc. Creatinine Clearance 52 mL/min (70-130); Calcium 9.3 mg/dL (7.8-10.44); Carbon Dioxide 28 mmol/L (23-31); Chloride 104 mmol/L (98-107); Glucose 90 mg/dL (83-110); Magnesium 1.9 mg/dL (1.6-2.6); Phosphorus 3.7 mg/dL (2.3-4.7); Potassium 4.2 mmol/L (3.5-5.1); Sodium 140 mmol/L (136-145)
[2020-02-22] MEDS ORDERED: Magnesium 2 GM/50 ML 2 GM in Premix Bag 1 BAG IVPB SCH (08:00)
[2020-02-22] MEDS: Acetaminophen 325 MG TAB PO PRN (08:37)
[2020-02-22] MEDS: Aspirin Chewable 81 MG TAB PO SCH (08:39)
[2020-02-22] MEDS: Lisinopril 5 MG TAB PO SCH (08:39)
[2020-02-22] MEDS: Cyanocobalamin (Vitamin B-12) 1,000 MCG TAB PO SCH (08:40)
[2020-02-22] MEDS: Atenolol 50 MG TAB PO SCH (08:40)
[2020-02-22] MEDS: FLUoxetine HCl 20 MG CAP PO SCH (08:41)
[2020-02-22] MEDS: Folic Acid 1 MG TAB PO SCH (08:41)
[2020-02-22] MEDS: Famotidine 20 MG TAB PO SCH ×2 (08:41→20:23)
[2020-02-22] MEDS: Senokot S 8.6-50 MG TAB PO PRN (08:42)
--- NOTE | 2020-02-22 16:00 | PDOC.HOSPP ---
- Subjective Encounter Date: 02/22/20 Encounter Time: 09:30 Subjective: Patient seen and examined for acute CVA. Had some paroxysmal atrial tachycardia on monitor worker in the last 24 hours. Denies any chest pain, shortness of breath, palpitations or new focal deficit. - Objective Vital Signs & Weight: Vital Signs (12 hours) Temp Pulse Resp BP BP Pulse Ox 02/22/20 15:47 97.6 F 68 14 122/57 L 97 02/22/20 11:55 97.5 F L 70 16 158/70 H 97 02/22/20 08:32 98 02/22/20 07:05 98 F 74 16 134/62 98 02/22/20 04:00 97.6 F 69 18 139/64 97 Weight Admit Weight 113 lb 1.6 oz Weight 113 lb 1.6 oz Most Recent Monitor Data Heart Rate from ECG 69 NIBP 114/48 NIBP BP-Mean 70 Respiration from ECG 20 SpO2 100 I&O: 02/21/20 02/22/20 02/23/20 06:59 06:59 06:59 Intake Total 917 1730 Output Total 5 Balance 917 1725 Result Diagrams: 02/22/20 04:36 02/22/20 04:36 Additional Labs: Abnormal Lab Results - Last 48 hrs 02/22/20 04:36: BUN 9 L 02/22/20 04:36: RBC 3.31 L, Hgb 11.2 L, Hct 33.6 L, MCV 102.0 H, MCH 33.8 H, RDW 10.8 L, Lymphocytes % 20.7 L, Monocytes % 14.6 H, Monocytes # 1.1 H EKG Reviewed by me: Yes (Sinus rhythm on telemetry) Hospitalist ROS - Review of Systems Respiratory: denies: cough, dry, shortness of breath, hemoptysis, SOB with excertion, pleuritic pain, sputum, wheezing, other Cardiovascular: denies: chest pain, palpitations, orthopnea, paroxysmal noc. dyspnea, edema, light headedness, other - Medication Medications: Active Medications Generic Name Dose Route Start Last Admin Trade Name Freq PRN Reason Stop Dose Admin Acetaminophen 650 mg 02/18/20 11:49 02/22/20 08:37 Acetaminophen 325 Mg Tab PO 650 mg Q4H PRN Administration Fever > 101 or headache Hydrocodone Bitart/Acetaminophen 1 tab 02/18/20 11:49 02/18/20 21:34 Hydrocodone/Acetaminophen 5/325 Mg Tablet PO 1 tab Q4H PRN Administration Mild Pain (1-3) Aspirin 81 mg 02/19/20 09:00 02/22/20 08:39 Aspirin Chewable 81 Mg Tab PO 81 mg QAM MACK Administration Atenolol 25 mg 02/18/20 09:00 02/22/20 08:40 Atenolol 50 Mg Tab PO 25 mg DAILY MACK Administration Atorvastatin Calcium 40 mg 02/17/20 21:00 02/21/20 20:09 Atorvastatin Calcium 40 Mg Tab PO 40 mg HS MACK Administration Cyanocobalamin 1,000 mcg 02/22/20 09:00 02/22/20 08:40 Cyanocobalamin (Vitamin B-12) 1,000 Mcg Tab PO 1,000 mcg DAILY MACK Administration Famotidine 20 mg 02/17/20 21:00 02/22/20 08:41 Famotidine 20 Mg Tab PO 20 mg BID MACK Administration Fluoxetine HCl 20 mg 02/18/20 09:00 02/22/20 08:41 Fluoxetine Hcl 20 Mg Cap PO 20 mg DAILY MACK Administration Folic Acid 1 mg 02/22/20 09:00 02/22/20 08:41 Folic Acid 1 Mg Tab PO 1 mg DAILY MACK Administration Lisinopril 5 mg 02/18/20 09:00 02/22/20 08:39 Lisinopril 5 Mg Tab PO 5 mg DAILY MACK Administration Senna/Docusate Sodium 2 tab 02/17/20 11:03 02/22/20 08:42 Senokot S 8.6-50 Mg Tab PO 2 tab BIDPRN PRN Administration Constipation Trazodone HCl 100 mg 02/17/20 21:00 02/21/20 20:09 Trazodone Hcl 50 Mg Tab PO 100 mg HS MACK Administration - Exam General Appearance: NAD Neck: supple, no JVD Heart: RRR, no gallops Respiratory: no wheezes, no ronchi Gastrointestinal: soft, non-tender, normal bowel sounds Extremities: no cyanosis, no clubbing Neurological: no new deficit Psychiatric: normal affect, A&O x 3 Hosp A/P - Plan DVT proph w/SCDs Acute CVA ?Embolic Left carotid stenosis status post carotid endarterectomy this admission Paroxysmal atrial arrhythmia Mild aortic stenosis Hypertension Hypomagnesemia Dyslipidemia CKD stage II Hyponatremia Macrocytic anemia Anxiety Insomnia Plan: Continue aspirin with statins. Continue current dose of atenolol, Prozac, lisinopril and other medications as above. Replace magnesium. Consult cardiology due to possibility of embolic CVA. Patient also had paroxysmal atrial arrhythmias on monitor worker on 02/20. Continue physical therapy. Await inpatient rehab placement.
[2020-02-22] MEDS: Atorvastatin Calcium 40 MG TAB PO SCH (20:23)
[2020-02-22] MEDS: traZODone HCl 50 MG TAB PO SCH (20:23)
--- NOTE | 2020-02-22 20:28 | CON ---
DATE OF CONSULTATION: HISTORY OF PRESENT ILLNESS: The patient is a 74-year-old woman with history of aortic stenosis, who was noted to have a rapid irregular heart rhythm. The patient has a history of aortic stenosis. She was in her usual state of health when she presented with acute onset of right-sided weakness and dysarthria. The patient was found to have severe cerebrovascular disease and underwent a carotid endarterectomy. The patient was on media monitor,and was noted to have an irregular heart rhythm. She denied having any palpitations. The patient denies having any chest pain or dyspnea. PAST MEDICAL HISTORY: 1. Hypertension. 2. Dyslipidemia. 3. Depression. 4. Aortic stenosis. PAST SURGICAL HISTORY: Carotid endarterectomy, ankle surgery, and hand surgery. SOCIAL HISTORY: Nonsmoker. MEDICATIONS: 1. Prozac 20 daily. 2. Lipitor 40 daily. 3. Nexium 40 daily. 4. Trazodone 100 at bedtime. 5. Lisinopril 20 daily. 6. Atenolol 50 daily. ALLERGIES: NO KNOWN DRUG ALLERGIES. FAMILY HISTORY: Positive family history of heart disease. REVIEW OF SYSTEMS: Ten-point system otherwise unremarkable. No history of easy bruising or bleeding. PHYSICAL EXAMINATION: GENERAL: A middle-aged woman, who is dysarthric. VITAL SIGNS: With a blood pressure of 158/70. NECK: No jugular venous distention. LUNGS: Clear to auscultation. HEART: Regular rate and rhythm. Normal S1 and S2. A 2/6 systolic murmur. ABDOMEN: Nondistended. EXTREMITIES: Showed no edema. NEUROLOGIC: Shows her to have mild right upper and lower extremity weakness. LABORATORY RESULTS: Sodium 140, potassium 4.2, chloride 104, bicarbonate 28, BUN 9, and creatinine 0.75. White blood cell count 7.8, hemoglobin 11.2, hematocrit 33.6, and platelets are 219. EKG normal sinus rhythm with lead misplacement. IMPRESSION AND PLAN: 1. Status post cerebrovascular accident. 2. Short run of SVT. 3. Possible MAT. 4. Aortic stenosis. 5. Hypertension. 6. Dyslipidemia. This patient had a cerebrovascular accident. She was found to have severe cerebrovascular disease,and underwent a carotid endarterectomy. On media monitor, she had a short run what appears to be of supraventricular tachycardia. This does not appear to be atrial fibrillation. We will ask Electrophysiology to evaluate. She may need a LINQ monitor for atrial fibrillation. Job ID: [id number]
--- NOTE | 2020-02-22 20:28 | CON ---
DATE OF CONSULTATION: HISTORY OF PRESENT ILLNESS: The patient is a 74-year-old woman with history of aortic stenosis, who presented with acute onset of right-sided weakness. The patient has a history of aortic stenosis. She was in her usual state of health when she suddenly had difficulty speaking and right-sided weakness. The patient denied having any chest discomfort. She denies having any history of palpitations. PAST MEDICAL HISTORY: 1. Hypertension. 2. Depression. 3. Dyslipidemia. PAST SURGICAL HISTORY: Carotid endarterectomy, ankle surgery, and hand surgery. MEDICATIONS: 1. Prozac 20 daily. 2. Trazodone 100 at bedtime. 3. Nexium 40 daily. 4. Lipitor 40 at bedtime. 5. Lisinopril 20 daily. 6. Atenolol 50 daily. SOCIAL HISTORY: Nonsmoker. FAMILY HISTORY: Positive family history of heart disease. ALLERGIES: NO KNOWN DRUG ALLERGIES. REVIEW OF SYSTEMS: Ten-point system otherwise unremarkable. No history of easy bruising or bleeding. PHYSICAL EXAMINATION: GENERAL: Elderly woman, in no acute distress. VITAL SIGNS: Blood pressure of 158/70. NECK: Showed no jugular venous distention. LUNGS: Clear to auscultation. HEART: Regular rate and rhythm. Normal S1 and S2 with a 2/6 systolic ejection murmur. ABDOMEN: Nondistended. EXTREMITIES: Show no edema. NEUROLOGIC: She has mild weakness in the right upper and lower extremities. LABORATORY RESULTS: White blood count 7.8, hemoglobin 11.2, hematocrit 33.6, and platelets are 216. Sodium was 140, potassium 4.2, chloride 104, bicarbonate 28, BUN 9, creatinine 0.75, glucose was 90. Her EKG revealed her to have normal sinus rhythm with an otherwise normal ECG with lead misplacement. Telemetry monitoring revealed a short run of SVT. IMPRESSION: 1. Status post cerebrovascular accident. 2. Status post carotid endarterectomy. 3. Short run of supraventricular tachycardia. 4. Aortic stenosis. 5. Hypertension. 6. Dyslipidemia. This patient presented with a cerebrovascular accident. She appears to have had a short run of SVT or MAT. We will ask EP to evaluate. It may be advisable to place an event monitor. We will follow this patient with you through her hospitalization. Job ID: [id number] [facility]
[2020-02-23] MEDS: Aspirin Chewable 81 MG TAB PO SCH (08:58)
[2020-02-23] MEDS: Famotidine 20 MG TAB PO SCH ×2 (08:58→20:30)
[2020-02-23] MEDS: FLUoxetine HCl 20 MG CAP PO SCH (08:58)
[2020-02-23] MEDS: Cyanocobalamin (Vitamin B-12) 1,000 MCG TAB PO SCH (08:59)
[2020-02-23] MEDS: Atenolol 50 MG TAB PO SCH (08:59)
[2020-02-23] MEDS: Folic Acid 1 MG TAB PO SCH (08:59)
[2020-02-23] MEDS: Lisinopril 5 MG TAB PO SCH (08:59)
[2020-02-23] MEDS ORDERED: Atenolol 50 MG TAB PO SCH (09:30)
[2020-02-23] MEDS ORDERED: Atenolol 25 MG TAB PO SCH (09:45)
--- NOTE | 2020-02-23 12:30 | PDOC.NEUPN ---
- Subjective Encounter Date: 02/23/20 Subjective: Ms. Alberto feels better today. Her speech is much improved since admission. She underwent carotid endarterectomy and has been doing well. - Objective Vital Signs & Weight: Vital Signs (12 hours) Temp Pulse Resp BP Pulse Ox 02/23/20 11:37 98.5 F 62 18 131/60 98 02/23/20 08:00 97 02/23/20 07:38 98.1 F 60 16 135/62 97 02/23/20 03:43 98.0 F 67 14 129/59 L 98 Weight Admit Weight 113 lb 1.6 oz Weight 113 lb 1.6 oz Most Recent Monitor Data Heart Rate from ECG 69 NIBP 114/48 NIBP BP-Mean 70 Respiration from ECG 20 SpO2 100 I&O: 02/22/20 02/23/20 02/24/20 06:59 06:59 06:59 Intake Total 1730 2350 240 Output Total 5 Balance 1725 2350 240 Result Diagrams: 02/22/20 04:36 02/22/20 04:36 Additional Labs: Accuchecks 02/23/20 05:05 POC Glucose 85 Radiology Reviewed by me: Yes EKG Reviewed by me: Yes ROS - Review of Systems Constitutional: denies: fever, chills, sweats, weakness, malaise, other Eyes: denies: pain, vision change, conjunctivae inflammation, eyelid inflammation, redness, other ENT: denies: ear pain, ear discharge, nose pain, nose discharge, nose congestion, mouth pain, mouth swelling, throat pain, throat swelling, other Respiratory: denies: cough, dry, shortness of breath, hemoptysis, SOB with excertion, pleuritic pain, sputum, wheezing, other Gastrointestinal: denies: nausea, vomiting, abdominal pain, diarrhea, constipation, melena, hematochezia, other Neurological: reports: change in speech All Systems: All other systems reviewed; all pertinent +/- noted in HPI/Subj - Medication Medications: Active Medications Generic Name Dose Route Start Last Admin Trade Name Freq PRN Reason Stop Dose Admin Acetaminophen 650 mg 02/18/20 11:49 02/22/20 08:37 Acetaminophen 325 Mg Tab PO 650 mg Q4H PRN Administration Fever > 101 or headache Hydrocodone Bitart/Acetaminophen 1 tab 02/18/20 11:49 02/18/20 21:34 Hydrocodone/Acetaminophen 5/325 Mg Tablet PO 1 tab Q4H PRN Administration Mild Pain (1-3) Aspirin 81 mg 02/19/20 09:00 02/23/20 08:58 Aspirin Chewable 81 Mg Tab PO 81 mg QAM MACK Administration Atorvastatin Calcium 40 mg 02/17/20 21:00 02/22/20 20:23 Atorvastatin Calcium 40 Mg Tab PO 40 mg HS MACK Administration Cyanocobalamin 1,000 mcg 02/22/20 09:00 02/23/20 08:59 Cyanocobalamin (Vitamin B-12) 1,000 Mcg Tab PO 1,000 mcg DAILY MACK Administration Famotidine 20 mg 02/17/20 21:00 02/23/20 08:58 Famotidine 20 Mg Tab PO 20 mg BID MACK Administration Fluoxetine HCl 20 mg 02/18/20 09:00 02/23/20 08:58 Fluoxetine Hcl 20 Mg Cap PO 20 mg DAILY MACK Administration Folic Acid 1 mg 02/22/20 09:00 02/23/20 08:59 Folic Acid 1 Mg Tab PO 1 mg DAILY MACK Administration Lisinopril 5 mg 02/18/20 09:00 02/23/20 08:59 Lisinopril 5 Mg Tab PO 5 mg DAILY MACK Administration Senna/Docusate Sodium 2 tab 02/17/20 11:03 02/22/20 08:42 Senokot S 8.6-50 Mg Tab PO 2 tab BIDPRN PRN Administration Constipation Trazodone HCl 100 mg 02/17/20 21:00 02/22/20 20:23 Trazodone Hcl 50 Mg Tab PO 100 mg HS MACK Administration - Exam General Appearance: awake alert Eye: PERRL ENT: normocephalic atraumatic Neck: supple Respiratory: CTAB Cardiovascular: RRR Gastrointestinal: soft Extremities: no cyanosis Skin: normal turgor Neurological: no new deficit, speech deficit Musculoskeletal: normal tone, no muscle wasting PSYCH: normal affect, normal behavior, A&O x 3 Results - Labs Result Diagrams: 02/22/20 04:36 02/22/20 04:36 Lab results: WBC 7.8 thou/uL (4.8-10.8) 02/22/20 04:36 Hgb 11.2 g/dL (12.0-16.0) L 02/22/20 04:36 Hct 33.6 % (36.0-47.0) L 02/22/20 04:36 MCV 102.0 fL (78.0-98.0) H 02/22/20 04:36 Plt Count 219 thou/uL (130-400) 02/22/20 04:36 Neutrophils % 61.5 % (42.0-75.0) 02/22/20 04:36 Sodium 140 mmol/L (136-145) 02/22/20 04:36 Potassium 4.2 mmol/L (3.5-5.1) 02/22/20 04:36 Chloride 104 mmol/L (98-107) 02/22/20 04:36 Carbon Dioxide 28 mmol/L (23-31) 02/22/20 04:36 BUN 9 mg/dL (9.8-20.1) L 02/22/20 04:36 Creatinine 0.75 mg/dL (0.6-1.1) 02/22/20 04:36 Glucose 90 mg/dL (83-110) 02/22/20 04:36 Calcium 9.3 mg/dL (7.8-10.44) 02/22/20 04:36 Total Bilirubin 0.4 mg/dL (0.2-1.2) 02/17/20 11:00 AST 23 U/L (5-34) 02/17/20 11:00 ALT 18 U/L (8-55) 02/17/20 11:00 Alkaline Phosphatase 54 U/L (40-110) 02/17/20 11:00 Serum Total Protein 6.2 g/dL (6.0-8.3) 02/17/20 11:00 Albumin 3.8 g/dL (3.4-4.8) 02/17/20 11:00 Urine Ketones Negative mg/dL (Negative) 02/17/20 11:12 Urine Blood Negative (Negative) 02/17/20 11:12 Urine Nitrite Negative (Negative) 02/17/20 11:12 Ur Leukocyte Esterase Negative Ray/uL (Negative) 02/17/20 11:12 - EKG Interpretation EKG: Patient had an episode of supraventricular tachycardia. - Radiology Interpretation MRI - head Additional Comment: Left cerebral infarct PN A/P (1) Acute CVA (cerebrovascular accident) Code(s): I63.9 - CEREBRAL INFARCTION, UNSPECIFIED Status: Acute (2) Left carotid stenosis Code(s): I65.22 - OCCLUSION AND STENOSIS OF LEFT CAROTID ARTERY Status: Acute (3) Aortic stenosis Code(s): I35.0 - NONRHEUMATIC AORTIC (VALVE) STENOSIS Status: Chronic Qualifiers: Cardiac valve disease etiology: nonrheumatic Qualified Code(s): I35.0 - Nonrheumatic aortic (valve) stenosis (4) Depression Code(s): F32.9 - MAJOR DEPRESSIVE DISORDER, SINGLE EPISODE, UNSPECIFIED Status: Chronic Qualifiers: Depression Type: unspecified Qualified Code(s): F32.9 - Major depressive di sorder, single episode, unspecified (5) HTN (hypertension) Code(s): I10 - ESSENTIAL (PRIMARY) HYPERTENSION Status: Chronic Qualifiers: Hypertension type: essential hypertension Qualified Code(s): I10 - Essential (primary) hypertension - Plan Daily Plan: plan discussed w/ family (Brother at bedside), PT/OT, speech therapy, out of bed/ambulate Ms. Neela Alberto is a 74-year-old female who presented with strokelike symptoms. MRI of the brain consistent with acute infarction. She is status post carotid endarterectomy on 02/18/2020 and has been doing really well. Her speech is improved and she denies any new complaints in the last 24 hours. She had a short run of supraventricular tachycardia on telemetry. She was seen by cardiology and recommended electrophysiology consult to assess the need for Linq monitor to evaluate for atrial fibrillation. Awaiting electrophysiology consult. MRI of the brain reviewed which was consistent with a left cerebral infarct. 2D echo showed left ventricular ejection fraction 60 to 65%. No thrombus or PFO. CTA of the head and neck showed hemodynamically significant stenosis in the left carotid artery. She is status post left carotid endarterectomy by Dr. Shukla on 02/18/2020 and has been doing well. Continue aspirin and high intensity statin for secondary stroke prevention. Monitor control of blood pressure and blood glucose. Continue home medications. Continue telemetry to rule out arrhythmias. PT/OT/speech. Continue medical management per primary team and cardiology. Case management on board regarding discharge planning Awaiting discharge to rehab. Plan discussed with the patient.
[2020-02-23 15:44] VITALS: TEMP 98.2
--- NOTE | 2020-02-23 18:11 | PDOC.DS.DS ---
Provider - Provider Date of Admission: 02/17/20 14:50 Date of Discharge: 02/23/20 Admitting Provider: Danette Fletcher MD Consultations: Cardiology, Neurology, Other (Cardiovascular) Primary Care Physician: Shirley Russell MD Course - Hospital Course Hospital Course: Patient is a 74-year-old female with hypertension and dyslipidemia presented to the emergency room with right-sided weakness along with difficulty speaking. She was admitted to the stroke unit with a diagnosis of suspected CVA. CT scan of the brain was negative for acute CVA. CT angiogram of the head and neck was consistent with high-grade stenosis at the origin of the left internal carotid artery. MRI of the brain was consistent with left cerebral infarct. Patient was evaluated by neurology and cardiovascular. Echocardiogram showed ejection fraction 60 to 65% with mild mitral regurgitation, mild aortic stenosis, mild tricuspid regurgitation and mild pulmonary regurgitation. She underwent left carotid endarterectomy on 02/[address] Shukla. She was also evaluated by cardiology and electrophysiology for short runs of narrow complex tachycardia. I discussed with electrophysiology Dr. Potts who will arrange for outpatient event monitor. There is no need for Linq recorder per Dr. Potts at this time. Patient was counseled to be compliant with antiplatelet agent. Patient will be discharged to inpatient rehabilitation. Final diagnosis: Acute left cerebral CVA Left carotid stenosis status post carotid endarterectomy this admission Supraventricular tachycardia Speech deficit due to above Mild aortic stenosis Hypertension Hypomagnesemia Dyslipidemia CKD stage II Hyponatremia Macrocytic anemia Anxiety Insomnia Time coordinating the discharge of this patient was 32 minutes. Resuscitation Status: 02/17/20 10:58 Resuscitation Status Routine Resuscitation Status: FULL: Full Resuscitation - Labs Lab Results: 02/22/20 04:36 02/22/20 04:36 Abnormal Lab Results - Last 48 hrs 02/22/20 04:36: BUN 9 L 02/22/20 04:36: RBC 3.31 L, Hgb 11.2 L, Hct 33.6 L, MCV 102.0 H, MCH 33.8 H, RDW 10.8 L, Lymphocytes % 20.7 L, Monocytes % 14.6 H, Monocytes # 1.1 H - Physical Exam Vitals: Vital Signs (12 hours) Temp Pulse Resp BP Pulse Ox 02/23/20 15:24 98.2 F 62 18 165/72 H 99 02/23/20 11:37 98.5 F 62 18 131/60 98 02/23/20 08:00 97 02/23/20 07:38 98.1 F 60 16 135/62 97 Weight Admit Weight 113 lb 1.6 oz Weight 113 lb 1.6 oz Most Recent Monitor Data Heart Rate from ECG 69 NIBP 114/48 NIBP BP-Mean 70 Respiration from ECG 20 SpO2 100 Physical Exam: The patient was seen and examined on the day of discharge. Plan - Discharge Medications Prescriptions: Aspirin Chewable [Aspirin Chewable Tablet] 81 mg PO QAM #30 tab Atenolol 50 mg PO DAILY #30 tablet Folic Acid [Folvite] 1 mg PO DAILY #30 tab Cyanocobalamin (Vitamin B-12) [Vitamin B-12] 1,000 mcg PO DAILY #30 tab Lisinopril [Zestril] 5 mg PO DAILY #30 tab Home Medications: Medication Instructions Recorded Confirmed Type Atorvastatin Calcium 40 mg PO DAILY 04/27/19 02/17/20 History Esomeprazole Magnesium [NexIUM 1 tab PO DAILY 04/27/19 02/17/20 History Oral Suspension] FLUoxetine HCl [Prozac] 20 mg PO DAILY 04/27/19 02/17/20 History traZODone HCl [Trazodone HCl] 1 tab PO HS 04/27/19 02/17/20 History Biotin 10,000 mcg PO DAILY 02/17/20 02/17/20 History Calcium Carbonate [Calcium] 1,500 mg PO DAILY 02/17/20 02/17/20 History Lutein 20 mg PO DAILY 02/17/20 02/17/20 History Multivitamin [Multivitamins] 1 cap PO DAILY 02/17/20 02/17/20 History Aspirin Chewable [Aspirin Chewable 81 mg PO QAM #30 tab 02/20/20 Rx Tablet] Lisinopril [Zestril] 5 mg PO DAILY #30 tab 02/20/20 Rx Acetaminophen [Tylenol Regular 650 mg PO Q4H PRN tab 02/21/20 Rx Strength] Cyanocobalamin (Vitamin B-12) 1,000 mcg PO DAILY #30 tab 02/21/20 Rx [Vitamin B-12] Folic Acid [Folvite] 1 mg PO DAILY #30 tab 02/21/20 Rx Sennosides/Docusate Sodium 2 tab PO BIDPRN PRN tab 02/21/20 Rx [Senokot S] Atenolol 50 mg PO DAILY #30 tablet 02/23/20 Rx Allergies: No Known Allergies Allergy (Verified 02/17/20 16:38) - Discharge Instructions Activity:: Activity as Tolerated Nourishment:: Heart Healthy Diet, Low Sodium Diet Therapies:: Occupational Therapy, Physical Therapy, Speech Therapy - Follow up Plan Referrals: Fartun Weiss MD [Affiliate] - 7 Days Shirley Russell MD [Primary Care Provider] - Leandro Shukla MD [Active] - 10 Days Raul Montenegro MD [Active] - 14 Days Disposition: REHABILITATION INPATIENT Quality - Care Measures CORE MEASURES:: Stroke/TIA - Stroke/TIA Did you prescribe antithrombotic therapy?: Yes Did you prescribe a statin medication?: Yes
--- NOTE | 2020-02-23 19:44 | CON ---
DATE OF CONSULTATION: 02/23/2020 REASON FOR CONSULTATION: Consideration for a loop recorder. HISTORY OF PRESENT ILLNESS: Ms. Alberto is a 74-year-old woman with a history of hypertension, aortic stenosis, and recent cerebrovascular accident with acute onset of right-sided weakness and dysarthria. She was found to have severe left carotid arterial stenosis and recently underwent carotid endarterectomy. She was also seen to have some atrial tachycardia events. Electrophysiology consultation has been requested for consideration of implantable loop recorder and management of her atrial arrhythmias. The patient is recovering from her recent stroke. She denies any heart racing, palpitations, chest pain, syncope, dizziness, or progressive shortness of breath. She denies any prior history of arrhythmias or irregular heart beats. PAST MEDICAL HISTORY: 1. Hypertension. 2. Dyslipidemia. 3. Depression. 4. Aortic stenosis. 5. Left carotid arterial stenosis status post carotid endarterectomy in February 2020. 6. Cerebrovascular accident with right-sided weakness and dysarthria, attributed to carotid arterial disease/embolic event. SOCIAL HISTORY: Nonsmoker. Denies alcohol or illicit drug use. FAMILY HISTORY: Noncontributory. ALLERGIES: NONE. HOME MEDICATIONS: 1. Prozac daily. 2. Lipitor daily. 3. Nexium daily. 4. Trazodone at bedtime. 5. Lisinopril daily. 6. Atenolol daily. See the patient's med list for full list. REVIEW OF SYSTEMS: A 12-point review of systems is negative except that listed above in HPI, but positive for mild right-sided weakness. OBJECTIVE: VITAL SIGNS: Temperature 98.5, pulse 62, blood pressure 131/60, respirations 18, and oxygen 95% on room air. GENERAL: The patient is alert and oriented. Speech is clear. Affect is appropriate. No apparent distress at the time of the exam. NECK: Supple without jugular venous distention. Trachea is midline. There is no lymphadenopathy. HEART: Rate is irregularly irregular with crisp S1 and S2. LUNGS: Clear to auscultation bilaterally without wheezes, crackles, or rhonchi. ABDOMEN: Soft and nontender without palpable masses. EXTREMITIES: Warm and dry to touch. Well perfused without clubbing, cyanosis, or edema. There is residual mild right-sided weakness upper and lower extremities. No additional focal deficits are noted. Gait was not assessed. LABORATORY DATA: Hemoglobin 11.2 and platelet count 219. Potassium 4.2, creatinine 0.75, and magnesium 1.9. Telemetry and EKG show paroxysmal atrial tachycardia, low burden, largely sinus rhythm. IMPRESSION: 1. Cerebrovascular accident. 2. Left carotid arterial stenosis status post endarterectomy. 3. Paroxysmal atrial tachycardia. PLAN AND RECOMMENDATIONS: Ms. Alberto is a 74-year-old female, who comes in with an acute cerebrovascular accident and also discovery of severe left carotid arterial stenosis. This is likely the source of her recent embolic stroke. She does have paroxysmal atrial tachycardia on telemetry, although at this point, there is no definite clinical indication for an implantable loop monitor. She has had no recurrent syncopal events and there is a high likelihood that her stroke originated from her carotid arterial disease. I would recommend continuing her atenolol and consider an outpatient event monitor to look for any further atrial arrhythmias. Thank you for allowing me to participate in the care of this patient. Do not hesitate to reach out to me if further input is desired. Job ID: [id number]
[2020-02-23 20:30] VITALS: BP 158/69
[2020-02-23] MEDS: traZODone HCl 50 MG TAB PO SCH (20:30)
[2020-02-23] MEDS: Atorvastatin Calcium 40 MG TAB PO SCH (20:30)
[2020-02-23] MEDS: Acetaminophen 325 MG TAB PO PRN (20:33)
[2020-02-24] MEDS ORDERED: Atenolol 50 MG TAB PO SCH (09:00)
--- NOTE | 2020-02-25 04:46 | PQF ---
Dear : Hamlet Moore Date / Time: 02/25/2020 Please exercise your independent, professional judgment in responding to the clarification form. Clinical indicators are provided on the bottom of this form for your review Can you please further clarify the diagnosis of the patient? Please check appropriate box(es): [ x ] Cerebral Infarction most likely due to left carotid artery stenosis [ ] Cerebral Infarction is not due to left carotid artery stenosis [ ] Other diagnosis,please specify [ ] Unable to determine Physician Signature: Date/Time: For continuity of documentation, please document condition throughout progress notes and discharge summary. Thank You. To be completed by CDI/Coding staff for physician review: Present Clinical Indicators - Signs / Symptoms / Labs Results and Location in Medical Record [ x ] Reason for admission: Dysarthria, difficulty using hands with right sided weakness H and P pg.1 [ x ] CT angio head and neck showed high grade stenosis at the origin of left internal carotid artery H and P pg.2 [ x ] MRI showing a left cerebral infarct Consult pg.1 Dr. Shukla [ x ] Admitted because of an episode of dysarthria and also expressive aphasia. Consult pg.2 Dr. Beltran [ x ] There is evidence of cortical infarction suggesting embolic phenomena. Consult pg.2 Dr. Beltran [ x ] Left carotid stenosis with thrombus and recent stroke OP report pgf.1 [ x ] Had CVA, she was found to have severe cerebrovascular disease,underwent endarterectomy Neuro PN 02/22 pg.6 [ x ] CVA with right sided weakness and dysarthria, attributed to carotid arterial disease/ embolic event Consult pg.1 02/22 Dr. 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 Potts Present Risk Factors Results and Location in Medical Record [ x ] 74 years old H and P pg.1 [ x ] HTN Consult pg.1 [ x ] HLD Consult pg.1 Present Treatments Results and Location in Medical Record [ x ] Left carotid endarterectomy with bovine patch angioplasty OP Report pg.1 [ x ] IV Fluids MAR [ x ] Neurology Consult Dr. Beltran 02/17 [ x ] Aspirin 81 mg IV MAR [ x ] Heparin 500units IV MAR [ x ] Lovenox 40mg Subcu MAR 02/16 [facility] Signature: Geremias Wallace Phone #: ext [phone] Date 02/25/2020 This is a permanent part of the Medical Record [facility]
== END 2020-02-23 20:42 | DRG 38 ==
LOC: ERS 10:30 → ERHOLD 11:03 → OBSVTOIN 14:50 → 2SE 15:49 → CCU 02-18 09:08 → IMCU/EMU 02-18 15:55 → 2SE 02-19 11:42
PROVIDERS: ADMIT Internal Medicine; ATTEND Internal Medicine
PROC: 03CL0ZZ Extirpation of Matter from Left Internal Carotid Artery, Open Approach (ICD-10-PCS; principal; 2020-02-18)
PROC: 03UL0KZ Supplement Left Internal Carotid Artery with Nonautologous Tissue Substitute, Open Approach (ICD-10-PCS; 2020-02-18)
DX: I63.232 Cerebral infarction due to unspecified occlusion or stenosis of left carotid arteries (principal); I47.1 Supraventricular tachycardia; E87.1 Hypo-osmolality and hyponatremia; G81.91 Hemiplegia, unspecified affecting right dominant side; R47.81 Slurred speech; Z20.828 Contact with and (suspected) exposure to other viral communicable diseases; E78.5 Hyperlipidemia, unspecified; G47.00 Insomnia, unspecified; R29.703 NIHSS score 3; I35.0 Nonrheumatic aortic (valve) stenosis; F32.9 Major depressive disorder, single episode, unspecified; R47.01 Aphasia; I12.9 Hypertensive chronic kidney disease with stage 1 through stage 4 chronic kidney disease, or unspecified chronic kidney disease; N18.2 Chronic kidney disease, stage 2 (mild); F41.9 Anxiety disorder, unspecified; E83.42 Hypomagnesemia; D64.9 Anemia, unspecified; Z79.899 Other long term (current) drug therapy
CPT/HCPCS: 36415; 36416; 70450; 70496; 70498; 70551; 80048; 80053; 80061; 81003; 83735; 84100; 85007; 85025; 85027; 85610; 85730; 87635; 93005; 93306; J0690; J1100; J1642; J1644; J1885; J2405; J2704; J2720; J3010; J3475; J3490; Q9967; U0003

== ENCOUNTER 2022-06-30 11:00 | Inpatient (IN) | payer MEDICARE, BC ==
[2022-06-30] MEDS ORDERED: Iopamidol-370 76% 500 ML MDV (1 ML CHARGE) ONE (11:11)
[2022-06-30 11:58] LABS: #Lymphocytes 0.7 thou/uL (1.20-3.40); #Monocytes 0.6 thou/uL (0.11-0.59); #Neutrophils 5.4 thou/uL (1.40-6.50); %Basophils 0.3 % (0.0-1.0); %Eosinophils 0.3 % (0.0-10.0); %Lymphocytes 10.9 % (21.0-51.0); %Monocytes 8.5 % (0.0-10.0); Hemoglobin 18.7 g/dL (12.0-16.0); Mean Corpuscular HGB CONC 33.2 g/dL (32.0-36.0); Mean Corpuscular Hemoglobin 31.6 pg (27.0-31.0); Mean Corpuscular Volume 95.3 fl (78.0-98.0); Mean Platelet Volume 8.3 fL (7.4-10.4); Platelet Count 211 10x3/uL (130-400); RBC Distribution Width 12.3 % (11.5-14.5); Red Blood Cell (RBC) Count 5.92 mill/uL (4.20-5.40); White Blood Cell (WBC) Count 6.8 10x3/uL (4.8-10.8)
[2022-06-30 12:10] LABS: INR-International Normal Ratio 0.9; PTT 25.6 sec (22.9-36.1); Prothrombin Time 12.6 sec (12.0-14.7)
[2022-06-30 12:19] LABS: Acetaminophen Less than 10.0 mcg/mL (10.0-30.0); Alcohol Less than 10 mg/dL (Less than 10); CK (CPK) 264 U/L (29-168); Salicylate Less than 8.0 mg/dL (15.0-30.0)
[2022-06-30 12:20] LABS: ALT (SGPT) 35 U/L (8-55); AST (SGOT) 50 U/L (5-34); Albumin 3.8 g/dL (3.4-4.8); Alkaline Phosphatase 61 U/L (40-110); Anion Gap 24 mmol/L (10-20); BUN (Urea Nitrogen) 24 mg/dL (9.8-20.1); Bilirubin, Total 0.8 mg/dL (0.2-1.2); Calc. Creatinine Clearance 0 mL/min (70-130); Calcium 9.9 mg/dL (7.8-10.44); Carbon Dioxide 23 mmol/L (23-31); Chloride 97 mmol/L (98-107); Estimated GFR 61; Globulin 3.1 g/dL (2.4-3.5); Glucose 87 mg/dL (83-110); Lipase 58 U/L (8-78); Potassium 3.4 mmol/L (3.5-5.1); Protein, Total 6.9 g/dL (5.8-8.1); Sodium 141 mmol/L (136-145)
[2022-06-30 12:48] LABS: CKMB 15.7 ng/mL (0-6.6)
[2022-06-30] MEDS ORDERED: Aspirin Chewable 81 MG TAB ONE ×2 (13:45→13:46)
[2022-06-30 13:57] LABS: Bacteria/HPF 2+ HPF (None Seen); Bilirubin Negative (Negative); Blood, Urine 1+ (Negative); Clarity Clear (Clear); Glucose, Urine (Dipstick) Normal (Negative); Ketone, Urine 60 mg/dL (Negative); Leukocyte 500 Leu/uL (Negative); Mucous/LPF Rare LPF (<2+); Nitrite Negative (Negative); Protein, Urine (Dipstick) 70 mg/dL (Neg-Trace); RBC/HPF 0-3 HPF (0-3); Squamous Epithelial 0-3 HPF (0-3); Yeast-Budding 2+ HPF (None Seen)
[2022-06-30 14:01] LABS: Amphetamine Not Detected (NotDetected); Barbiturates Screen Not Detected (NotDetected); Benzodiazepine Screen Not Detected (NotDetected); Cocaine Metabolite Screen Not Detected (NotDetected); Methadone Not Detected (NotDetected); Methamphetamine Not Detected (NotDetected); Opiate Screen Not Detected (NotDetected); Oxycodone Screen Not Detected (NotDetected); Phencyclidine (PCP) Not Detected (NotDetected); Specific Gravity, Urine 1.044 (1.002-1.036); THC/Cannabinoid Screen Not Detected (NotDetected); Tricyclic Screen Not Detected (NotDetected)
[2022-06-30 15:18] LABS: Lactic Acid 1.4 mmol/L (0.5-2.2)
[2022-06-30 16:02] LABS: CKMB 14.8 ng/mL (0-6.6)
[2022-06-30] MEDS ORDERED: Metoclopramide HCl 10 MG/2 ML VIAL IVP PRN (16:40)
[2022-06-30] MEDS ORDERED: hydrALAZINE 20 MG/ML VIAL SLOW IVP PRN (16:41)
[2022-06-30] MEDS ORDERED: NS 0.9% w/ 40 MEQ KCL 1,000 ML IV SCH (16:45)
[2022-06-30] MEDS ORDERED: Electrolyte Replacement Protocol 1 EACH FS SCH (17:00)
[2022-06-30 17:44] LABS: Magnesium 1.9 mg/dL (1.6-2.6)
[2022-06-30 17:49] LABS: Troponin I 0.077 ng/mL (< 0.028)
[2022-06-30] MEDS ORDERED: Ondansetron PF 4 MG/2 ML Vial IVP PRN (23:30)
[2022-06-30] MEDS ORDERED: Ondansetron ODT 4 MG TAB SL PRN (23:30)
[2022-07-01] MEDS: Senokot S 8.6-50 MG TAB PO SCH ×3 (00:15→21:49)
[2022-07-01 05:58] LABS: #Lymphocytes 1.1 thou/uL (1.20-3.40); #Neutrophils 6.5 thou/uL (1.40-6.50); %Basophils 0.1 % (0.0-1.0); %Eosinophils 0.4 % (0.0-10.0); %Lymphocytes 12.6 % (21.0-51.0); %Neutrophils 74.9 % (42.0-75.0); Mean Corpuscular HGB CONC 32.6 g/dL (32.0-36.0); Mean Corpuscular Hemoglobin 31.1 pg (27.0-31.0); Mean Corpuscular Volume 95.6 fl (78.0-98.0); Mean Platelet Volume 7.9 fL (7.4-10.4); Platelet Count 168 10x3/uL (130-400); RBC Distribution Width 12.4 % (11.5-14.5); Red Blood Cell (RBC) Count 5.77 mill/uL (4.20-5.40); White Blood Cell (WBC) Count 8.6 10x3/uL (4.8-10.8)
[2022-07-01 06:20] LABS: Anion Gap 22 mmol/L (10-20); BUN (Urea Nitrogen) 16 mg/dL (9.8-20.1); Calc. Creatinine Clearance 30 mL/min (70-130); Calcium 9.3 mg/dL (7.8-10.44); Carbon Dioxide 19 mmol/L (23-31); Chloride 102 mmol/L (98-107); Cholesterol 249 mg/dl (< 200 Desired); Estimated GFR 81; Glucose 59 mg/dL (83-110); HDL Cholesterol 50 mg/dL (>60 Neg Risk); LDL Cholesterol, Calculated 173 mg/dL; Potassium 3.9 mmol/L (3.5-5.1); Sodium 139 mmol/L (136-145); Triglycerides 128 mg/dL (Less than 150)
[2022-07-01] MEDS ORDERED: Dextrose 50% Abboject 50 ML SYRINGE SLOW IVP SCH (08:24)
[2022-07-01] MEDS ORDERED: Magnesium 2 GM/50 ML(in water) 2 GM in Premix Bag 1 BAG IVPB SCH (09:00)
[2022-07-01] MEDS: Aspirin 81 mg Enteric Coated Tablet PO SCH (09:57)
[2022-07-01] MEDS: Polyethylene Glycol 3350 17 GM Packet PO SCH (09:57)
[2022-07-01] MEDS ORDERED: Dextrose 5 % And 0.9 % NaCl 1,000 ML IV SCH (11:30)
[2022-07-01] MEDS: cefTRIAXone\\ROCEPHIN 1 GM in Sodium Chloride 0.9% 100 ML IVPB SCH (16:17)
[2022-07-01 16:37] LABS: Magnesium 2.3 mg/dL (1.6-2.6)
[2022-07-02 06:23] LABS: ALT (SGPT) 25 U/L (8-55); AST (SGOT) 37 U/L (5-34); Albumin 3.1 g/dL (3.4-4.8); Alkaline Phosphatase 49 U/L (40-110); Anion Gap 11 mmol/L (10-20); BUN (Urea Nitrogen) 18 mg/dL (9.8-20.1); Bilirubin, Total 0.4 mg/dL (0.2-1.2); Calc. Creatinine Clearance 34 mL/min (70-130); Calcium 8.7 mg/dL (7.8-10.44); Carbon Dioxide 26 mmol/L (23-31); Chloride 104 mmol/L (98-107); Estimated GFR 90; Globulin 2.3 g/dL (2.4-3.5); Glucose 92 mg/dL (83-110); Magnesium 1.9 mg/dL (1.6-2.6); Potassium 3.4 mmol/L (3.5-5.1); Protein, Total 5.4 g/dL (5.8-8.1); Sodium 138 mmol/L (136-145)
[2022-07-02 06:25] LABS: Differential Comment Plasma-like Cell(s); Eosinophils 1 % (0-10); Hemoglobin 14.2 g/dL (12.0-16.0); Lymphocytes 19 % (21-51); MDiff Complete? YES; Mean Corpuscular HGB CONC 33.8 g/dL (32.0-36.0); Mean Corpuscular Hemoglobin 32.1 pg (27.0-31.0); Monocytes 14 % (0-10); Neutrophil 65 % (42-75); Platelet Count 171 10x3/uL (130-400); Platelet Morphology Comment Appears Adequate; RBC Distribution Width 12.4 % (11.5-14.5); RBC Morphology Normal; Red Blood Cell (RBC) Count 4.44 mill/uL (4.20-5.40); Reflex for Review?? YES; White Blood Cell (WBC) Count 6.7 10x3/uL (4.8-10.8)
[2022-07-02] MEDS ORDERED: Potassium Chloride 20 MEQ TAB PO SCH (08:00)
[2022-07-02] MEDS: Polyethylene Glycol 3350 17 GM Packet PO SCH (08:48)
[2022-07-02] MEDS: Senokot S 8.6-50 MG TAB PO SCH ×2 (08:49→21:34)
[2022-07-02] MEDS: Aspirin 81 mg Enteric Coated Tablet PO SCH (08:49)
[2022-07-02] MEDS ORDERED: Magnesium 2 GM/50 ML(in water) 2 GM in Premix Bag 1 BAG IVPB SCH (09:00)
[2022-07-02 14:23] LABS: Potassium 4.3 mmol/L (3.5-5.1)
[2022-07-02] MEDS: cefTRIAXone\\ROCEPHIN 1 GM in Sodium Chloride 0.9% 100 ML IVPB SCH (15:22)
[2022-07-03 05:18] LABS: #Lymphocytes 1.3 thou/uL (1.20-3.40); #Monocytes 0.8 thou/uL (0.11-0.59); #Neutrophils 4.6 thou/uL (1.40-6.50); %Basophils 0.3 % (0.0-1.0); %Eosinophils 0.3 % (0.0-10.0); %Lymphocytes 19.2 % (21.0-51.0); %Monocytes 12.2 % (0.0-10.0); Mean Corpuscular HGB CONC 33.3 g/dL (32.0-36.0); Mean Corpuscular Hemoglobin 31.9 pg (27.0-31.0); Mean Corpuscular Volume 95.8 fl (78.0-98.0); Mean Platelet Volume 7.6 fL (7.4-10.4); Platelet Count 168 10x3/uL (130-400); RBC Distribution Width 12.5 % (11.5-14.5); White Blood Cell (WBC) Count 6.8 10x3/uL (4.8-10.8)
[2022-07-03 05:59] LABS: ALT (SGPT) 25 U/L (8-55); AST (SGOT) 32 U/L (5-34); Alkaline Phosphatase 48 U/L (40-110); Anion Gap 10 mmol/L (10-20); BUN (Urea Nitrogen) 15 mg/dL (9.8-20.1); Bilirubin, Total 0.4 mg/dL (0.2-1.2); Calc. Creatinine Clearance 37 mL/min (70-130); Calcium 8.5 mg/dL (7.8-10.44); Carbon Dioxide 26 mmol/L (23-31); Chloride 105 mmol/L (98-107); Estimated GFR 91; Globulin 2.3 g/dL (2.4-3.5); Glucose 87 mg/dL (83-110); Magnesium 2.2 mg/dL (1.6-2.6); Protein, Total 5.3 g/dL (5.8-8.1); Sodium 137 mmol/L (136-145)
[2022-07-03] MEDS: Senokot S 8.6-50 MG TAB PO SCH ×2 (08:05→22:07)
[2022-07-03] MEDS: Aspirin 81 mg Enteric Coated Tablet PO SCH (08:05)
[2022-07-03] MEDS: Polyethylene Glycol 3350 17 GM Packet PO SCH (08:05)
[2022-07-03] MEDS: cefTRIAXone\\ROCEPHIN 1 GM in Sodium Chloride 0.9% 100 ML IVPB SCH (15:18)
[2022-07-03] MEDS: Acetaminophen 325 MG TAB PO PRN (22:06)
[2022-07-03] MEDS: Atorvastatin Calcium 40 MG TAB PO SCH (22:07)
[2022-07-04 05:34] LABS: #Lymphocytes 1.4 thou/uL (1.20-3.40); #Monocytes 0.9 thou/uL (0.11-0.59); #Neutrophils 4.2 thou/uL (1.40-6.50); %Basophils 0.1 % (0.0-1.0); %Eosinophils 0.5 % (0.0-10.0); %Lymphocytes 21.6 % (21.0-51.0); %Neutrophils 63.7 % (42.0-75.0); Hemoglobin 14.1 g/dL (12.0-16.0); Mean Corpuscular HGB CONC 34.1 g/dL (32.0-36.0); Mean Corpuscular Volume 96.7 fl (78.0-98.0); Mean Platelet Volume 7.8 fL (7.4-10.4); Platelet Count 197 10x3/uL (130-400); RBC Distribution Width 12.5 % (11.5-14.5); Red Blood Cell (RBC) Count 4.27 mill/uL (4.20-5.40); White Blood Cell (WBC) Count 6.6 10x3/uL (4.8-10.8)
[2022-07-04 05:55] LABS: ALT (SGPT) 22 U/L (8-55); AST (SGOT) 26 U/L (5-34); Alkaline Phosphatase 50 U/L (40-110); Anion Gap 11 mmol/L (10-20); BUN (Urea Nitrogen) 23 mg/dL (9.8-20.1); Bilirubin, Total 0.2 mg/dL (0.2-1.2); Calc. Creatinine Clearance 34 mL/min (70-130); Calcium 8.9 mg/dL (7.8-10.44); Carbon Dioxide 27 mmol/L (23-31); Chloride 105 mmol/L (98-107); Estimated GFR 89; Globulin 2.3 g/dL (2.4-3.5); Glucose 101 mg/dL (83-110); Potassium 4.3 mmol/L (3.5-5.1); Protein, Total 5.3 g/dL (5.8-8.1); Sodium 139 mmol/L (136-145)
[2022-07-04] MEDS: Polyethylene Glycol 3350 17 GM Packet PO SCH (08:27)
[2022-07-04] MEDS: Senokot S 8.6-50 MG TAB PO SCH ×2 (08:28→22:41)
[2022-07-04] MEDS: Aspirin 81 mg Enteric Coated Tablet PO SCH (08:36)
[2022-07-04] MEDS: cefTRIAXone\\ROCEPHIN 1 GM in Sodium Chloride 0.9% 100 ML IVPB SCH (15:07)
[2022-07-04] MEDS: Atorvastatin Calcium 40 MG TAB PO SCH (22:40)
[2022-07-04] MEDS: Acetaminophen 325 MG TAB PO PRN (22:40)
[2022-07-05 05:45] LABS: ALT (SGPT) 19 U/L (8-55); AST (SGOT) 23 U/L (5-34); Alkaline Phosphatase 41 U/L (40-110); Anion Gap 12 mmol/L (10-20); BUN (Urea Nitrogen) 19 mg/dL (9.8-20.1); Bilirubin, Total 0.2 mg/dL (0.2-1.2); Calc. Creatinine Clearance 39 mL/min (70-130); Carbon Dioxide 26 mmol/L (23-31); Chloride 105 mmol/L (98-107); Estimated GFR 91; Globulin 2.4 g/dL (2.4-3.5); Glucose 92 mg/dL (83-110); Potassium 4.6 mmol/L (3.5-5.1); Protein, Total 5.4 g/dL (5.8-8.1); Sodium 138 mmol/L (136-145)
[2022-07-05 05:53] LABS: Band 2 % (5-11); Hemoglobin 12.9 g/dL (12.0-16.0); Lymphocytes 18 % (21-51); MDiff Complete? YES; Mean Corpuscular HGB CONC 33.1 g/dL (32.0-36.0); Mean Corpuscular Hemoglobin 31.9 pg (27.0-31.0); Mean Corpuscular Volume 96.2 fl (78.0-98.0); Mean Platelet Volume 7.4 fL (7.4-10.4); Monocytes 16 % (0-10); Neutrophil 64 % (42-75); Platelet Count 197 10x3/uL (130-400); Platelet Morphology Comment Appears Adequate; RBC Distribution Width 12.5 % (11.5-14.5); RBC Morphology Normal; Red Blood Cell (RBC) Count 4.05 mill/uL (4.20-5.40); White Blood Cell (WBC) Count 5.9 10x3/uL (4.8-10.8)
[2022-07-05] MEDS ORDERED: Apixaban 2.5 MG TAB PO SCH ×2 (09:45→10:00)
[2022-07-05] MEDS: Polyethylene Glycol 3350 17 GM Packet PO SCH (10:52)
[2022-07-05] MEDS: Aspirin 81 mg Enteric Coated Tablet PO SCH (10:53)
[2022-07-05] MEDS: Senokot S 8.6-50 MG TAB PO SCH ×2 (10:55→21:03)
[2022-07-05] MEDS: cefTRIAXone\\ROCEPHIN 1 GM in Sodium Chloride 0.9% 100 ML IVPB SCH (16:16)
[2022-07-05 16:29] VITALS: BMI 13.7
[2022-07-05] MEDS: Atorvastatin Calcium 40 MG TAB PO SCH (21:03)
[2022-07-05] MEDS: Apixaban 2.5 MG TAB PO SCH (21:03)
[2022-07-06 05:30] LABS: Band 2 % (5-11); Hemoglobin 13.1 g/dL (12.0-16.0); Lymphocytes 17 % (21-51); MDiff Complete? YES; Mean Corpuscular HGB CONC 32.4 g/dL (32.0-36.0); Mean Corpuscular Hemoglobin 31.3 pg (27.0-31.0); Mean Corpuscular Volume 96.6 fl (78.0-98.0); Mean Platelet Volume 7.4 fL (7.4-10.4); Monocytes 9 % (0-10); Neutrophil 72 % (42-75); Platelet Count 218 10x3/uL (130-400); Platelet Morphology Comment Appears Adequate; RBC Distribution Width 12.6 % (11.5-14.5); RBC Morphology Normal; Red Blood Cell (RBC) Count 4.19 mill/uL (4.20-5.40); White Blood Cell (WBC) Count 7.1 10x3/uL (4.8-10.8)
[2022-07-06] MEDS: Polyethylene Glycol 3350 17 GM Packet PO SCH (10:31)
[2022-07-06] MEDS: Apixaban 2.5 MG TAB PO SCH ×2 (10:31→20:34)
[2022-07-06] MEDS: Aspirin 81 mg Enteric Coated Tablet PO SCH (10:31)
[2022-07-06] MEDS: Senokot S 8.6-50 MG TAB PO SCH ×2 (10:32→20:34)
[2022-07-06] MEDS ORDERED: Metoprolol Tartrate 25 MG TAB PO SCH (12:15)
[2022-07-06] MEDS: Atorvastatin Calcium 40 MG TAB PO SCH (20:34)
[2022-07-06] MEDS: Famotidine 20 MG TAB PO SCH (20:34)
[2022-07-06] MEDS: Metoprolol Tartrate 25 MG TAB PO SCH (20:35)
[2022-07-07 06:24] LABS: #Lymphocytes 1.4 thou/uL (1.20-3.40); #Monocytes 0.6 thou/uL (0.11-0.59); #Neutrophils 2.9 thou/uL (1.40-6.50); %Basophils 0.8 % (0.0-1.0); %Eosinophils 0.7 % (0.0-10.0); %Lymphocytes 28.2 % (21.0-51.0); %Monocytes 11.7 % (0.0-10.0); %Neutrophils 58.7 % (42.0-75.0); Hemoglobin 13.3 g/dL (12.0-16.0); Mean Corpuscular HGB CONC 33.2 g/dL (32.0-36.0); Mean Corpuscular Hemoglobin 32.5 pg (27.0-31.0); Mean Corpuscular Volume 97.8 fl (78.0-98.0); Platelet Count 233 10x3/uL (130-400); RBC Distribution Width 12.6 % (11.5-14.5); Red Blood Cell (RBC) Count 4.09 mill/uL (4.20-5.40); White Blood Cell (WBC) Count 4.9 10x3/uL (4.8-10.8)
[2022-07-07 06:48] LABS: Anion Gap 9 mmol/L (10-20); BUN (Urea Nitrogen) 20 mg/dL (9.8-20.1); Calc. Creatinine Clearance 40 mL/min (70-130); Calcium 9.2 mg/dL (7.8-10.44); Carbon Dioxide 30 mmol/L (23-31); Chloride 105 mmol/L (98-107); Estimated GFR 91; Glucose 80 mg/dL (83-110); Potassium 4.3 mmol/L (3.5-5.1); Sodium 140 mmol/L (136-145)
[2022-07-07] MEDS: Apixaban 2.5 MG TAB PO SCH ×2 (13:24→21:27)
[2022-07-07] MEDS: Polyethylene Glycol 3350 17 GM Packet PO SCH (13:24)
[2022-07-07] MEDS: Aspirin Chewable 81 MG TAB PO SCH (13:24)
[2022-07-07] MEDS: Senokot S 8.6-50 MG TAB PO SCH ×2 (13:24→21:28)
[2022-07-07] MEDS: Metoprolol Tartrate 25 MG TAB PO SCH ×2 (13:24→21:27)
[2022-07-07] MEDS: Atorvastatin Calcium 40 MG TAB PO SCH (21:27)
[2022-07-07] MEDS: Famotidine 20 MG TAB PO SCH (21:27)
[2022-07-08] MEDS: Senokot S 8.6-50 MG TAB PO SCH ×2 (11:20→21:25)
[2022-07-08] MEDS: Aspirin Chewable 81 MG TAB PO SCH (11:20)
[2022-07-08] MEDS: Metoprolol Tartrate 25 MG TAB PO SCH ×2 (11:20→21:24)
[2022-07-08] MEDS: Apixaban 2.5 MG TAB PO SCH ×2 (11:20→21:24)
[2022-07-08] MEDS: Polyethylene Glycol 3350 17 GM Packet PO SCH (11:21)
[2022-07-08] MEDS: Famotidine 20 MG TAB PO SCH (21:24)
[2022-07-08] MEDS: Atorvastatin Calcium 40 MG TAB PO SCH (21:24)
[2022-07-09] MEDS: Aspirin Chewable 81 MG TAB PO SCH (09:47)
[2022-07-09] MEDS: Senokot S 8.6-50 MG TAB PO SCH ×2 (09:47→21:10)
[2022-07-09] MEDS: Metoprolol Tartrate 25 MG TAB PO SCH ×2 (09:47→21:09)
[2022-07-09] MEDS: Polyethylene Glycol 3350 17 GM Packet PO SCH (09:47)
[2022-07-09] MEDS: Apixaban 2.5 MG TAB PO SCH ×2 (09:47→21:09)
[2022-07-09] MEDS: Atorvastatin Calcium 40 MG TAB PO SCH (21:09)
[2022-07-09] MEDS: Famotidine 20 MG TAB PO SCH (21:09)
[2022-07-10] MEDS: Polyethylene Glycol 3350 17 GM Packet PO SCH (08:42)
[2022-07-10] MEDS: Aspirin Chewable 81 MG TAB PO SCH (08:43)
[2022-07-10] MEDS: Apixaban 2.5 MG TAB PO SCH (08:43)
[2022-07-10] MEDS: Metoprolol Tartrate 25 MG TAB PO SCH (08:43)
[2022-07-10] MEDS: Senokot S 8.6-50 MG TAB PO SCH (08:43)
[2022-07-10 12:43] VITALS: BP 161/70; TEMP 97.3
[2022-07-10 13:30] LABS: Anion Gap 12 mmol/L (10-20); BUN (Urea Nitrogen) 22 mg/dL (9.8-20.1); Calc. Creatinine Clearance 38 mL/min (70-130); Calcium 9.2 mg/dL (7.8-10.44); Carbon Dioxide 28 mmol/L (23-31); Chloride 103 mmol/L (98-107); Estimated GFR 90; Glucose 73 mg/dL (83-110); Potassium 3.9 mmol/L (3.5-5.1); Sodium 139 mmol/L (136-145)
== END 2022-07-10 15:15 | DRG 64 ==
LOC: ERS 11:00 → ERHOLD 15:54 → NEURO 22:45 → OBSVTOIN 07-01 14:05 → NEURO 07-04 19:55
PROVIDERS: ADMIT Internal Medicine; ATTEND Internal Medicine
DX: I63.89 Other cerebral infarction (principal); E43 Unspecified severe protein-calorie malnutrition; E87.1 Hypo-osmolality and hyponatremia; R64 Cachexia; Z68.1 Body mass index [BMI] 19.9 or less, adult; N39.0 Urinary tract infection, site not specified; G93.40 Encephalopathy, unspecified; Z51.5 Encounter for palliative care; Z66 Do not resuscitate; E78.5 Hyperlipidemia, unspecified; I12.9 Hypertensive chronic kidney disease with stage 1 through stage 4 chronic kidney disease, or unspecified chronic kidney disease; N18.2 Chronic kidney disease, stage 2 (mild); R94.31 Abnormal electrocardiogram [ECG] [EKG]; E87.5 Hyperkalemia; E86.0 Dehydration; K59.00 Constipation, unspecified; I35.1 Nonrheumatic aortic (valve) insufficiency; F03.90 Unspecified dementia, unspecified severity, without behavioral disturbance, psychotic disturbance, mood disturbance, and anxiety; E27.8 Other specified disorders of adrenal gland; R29.700 NIHSS score 0; E16.2 Hypoglycemia, unspecified; Z79.899 Other long term (current) drug therapy
CPT/HCPCS: 36415; 36416; 70450; 70551; 71045; 71260; 72125; 74177; 80048; 80053; 80061; 80306; 80307; 81003; 81015; 82140; 82550; 82553; 83605; 83690; 83735; 83880; 84443; 84484; 85025; 85060; 85610; 85730; 87086; 93005; 93010; 93306; 93880; 94760; 96365; 96372; 96375; G0378; J0360; J0696; J1650; J3475; J3480; J3490; J7042; J7999; Q9967